=== PATIENT | male | born 1960 | race Caucasian/White ===

== ENCOUNTER 2018-05-08 02:25 | Inpatient (IN) | payer MEDICAID, OTHER ==
[~2018-05-08] VITALS: Ht 160 cm; Wt 65.4 kg
[2018-05-08] MEDS ORDERED: INSULIN REGULAR, HUMAN 100 UNIT/1 ML 3ML VIAL IVP STA (04:42)
[2018-05-08] MEDS ORDERED: NA POLYST SULFON 15 GM/60 ML BTL PO STA (04:42)
--- NOTE | 2018-05-08 04:54 | ERD ---
ER Documentation Chief Complaint Chief Complaint cp x 2 days was seen at [facility] x 2 days ago for same HPI 57-year-old male with a history of cirrhosis presenting with chest pain for the past 2 days with associated weakness. He describes an aching, pressure in his chest, nonradiating, intermittent. Not associated with exertion. He states that he has a history of cirrhosis and usually goes weekly to [facility] for paracenteses. He endorses decrease in urination. No shortness of breath, vomiting, diarrhea, abdominal pain, fever or chills ROS All systems reviewed and are negative except as per history of present illness. Medications Home Meds No Active Prescriptions or Reported Meds Allergies Allergies: Coded Allergies: No Known Allergy (Unverified , 05/12/12) PMhx/Soc History of Surgery: No Anesthesia Reaction: No Hx Neurological Disorder: No Hx Respiratory Disorders: No Hx Cardiac Disorders: Yes Hx Psychiatric Problems: No Hx Miscellaneous Medical Probl: Yes (HIV (+), cirrhosis) Hx Alcohol Use: Yes (former alcohol use) Hx Substance Use: No Hx Tobacco Use: No Smoking Status: Never smoker FmHx Family History: No diabetes Physical Exam Vitals Vital Signs Date Temp Pulse Resp B/P (MAP) Pulse Ox O2 O2 Flow FiO2 Time Delivery Rate 05/08/18 83 18 113/81 100 05:45 (92) 05/08/18 89 18 116/80 100 03:15 (92) 05/08/18 99.2 104 24 101/66 100 02:35 (78) Physical Exam Const: No acute distress Head: Atraumatic Eyes: Normal Conjunctiva ENT: Normal External Ears, Nose and Mouth. Neck: Full range of motion. No meningismus. Resp: Clear to auscultation bilaterally Cardio: Regular rate and rhythm, no murmurs Abd: Soft, distended with ascites. Nontender to palpation. Normal bowel sounds Skin: No petechiae or rashes Back: No midline or flank tenderness Ext: No cyanosis, or edema Neur: Awake and alert Psych: Normal Mood and Affect Result Diagram: 05/08/18 0320 05/08/18 0320 Results 24 hrs Laboratory Tests Test 05/08/18 03:20 05/08/18 05:16 White Blood Count 6.1 10^3/ul Red Blood Count 4.47 10^6/ul Hemoglobin 11.2 g/dl Hematocrit 34.2 % Mean Corpuscular Volume 76.5 fl Mean Corpuscular Hemoglobin 25.1 pg Mean Corpuscular Hemoglobin Concent 32.7 g/dl Red Cell Distribution Width 19.7 % Platelet Count 168 10^3/UL Mean Platelet Volume 10.2 fl Immature Granulocytes % 0.500 % Neutrophils % % Segmented Neutrophils % (Manual) 56 % Lymphocytes % % Lymphocytes % (Manual) 20 % Monocytes % % Monocytes % (Manual) 17 % Eosinophils % % Eosinophils % (Manual) 1 % Basophils % % Metamyelocytes % (manual) 3 % Promyelocytes % (Manual) 3 % Nucleated Red Blood Cells % 0.0 /100WBC Immature Granulocytes # 0.030 10^3/ul Neutrophils # 10^3/ul Lymphocytes (Manual) 1.2 10^3/ul Lymphocytes # 10^3/ul Monocytes # 10^3/ul Monocytes # (Manual) 1.0 10^3/ul Eosinophils # 10^3/ul Basophils # 10^3/ul Metamyelocytes # 0.1 10^3/ul Promyelocytes # 0.1 10^3/ul Nucleated Red Blood Cells # 10^3/ul Platelet Estimate NORMAL Polychromasia 1+ Hypochromasia 2+ Poikilocytosis 1+ Anisocytosis 1+ Macrocytosis 1+ Ovalocytes 1+ Sodium Level 130 mmol/L Potassium Level 6.1 mmol/L Chloride Level 97 mmol/L Carbon Dioxide Level 22 mmol/L Anion Gap 11 Blood Urea Nitrogen 30 mg/dl Creatinine 1.51 mg/dl Est Glomerular Filtrat Rate mL/min 48 mL/min Glucose Level 102 mg/dl Calcium Level 8.7 mg/dl Troponin I < 0.012 ng/ml Bedside Glucose 84 mg/dL Current Medications Medications Dose Sig/Keya Start Time Status Last (Trade) Ordered Route PRN Stop Time Admin Dose Reason Admin Sodium 30 gm ONCE STAT 05/08/18 DC 05/08/18 Polystyrene PO 04:42 05:29 Sulfonate 05/08/18 04:45 (Kayexalate) Insulin 10 unit ONCE STAT 05/08/18 DC 05/08/18 Human IVP 04:42 05:19 Regular 05/08/18 04:45 (Humulin R) Dextrose 100 ml ONCE ONCE 05/08/18 DC 05/08/18 (D50w IV 05:00 05:19 Syringe) 05/08/18 05:01 Dextrose ONCE PRN 05/08/18 (D50w IV DECREASED 05:00 Syringe) GLUCOSE Ondansetron 4 mg ER BRIDGE 05/08/18 HCl (Zofran PRN IV 05:30 Inj) NAUSEA/VOMITI 05/09/18 05:29 NG 650 mg ER BRIDGE 05/08/18 Acetaminophen PRN PO 05:30 (Tylenol .MILD PAIN 05/09/18 05:29 Tab) 1-3 OR TEMP Sodium 1,000 ml @ Q24H IV 05/08/18 05/08/18 Chloride 40 mls/hr 05:05 05:25 05/09/18 06:04 IV Flush 3 ml PER 05/08/18 (NS 3 ml) PROTOCOL IV 05:30 Ondansetron 4 mg Q6H PRN 05/08/18 HCl (Zofran IV 05:30 Inj) NAUSEA/VOMITI NG Morphine 2 mg Q4H PRN 05/08/18 Sulfate IV .PAIN 05:30 (morphine) 7-10 Procedures/MDM EMERGENT LABS AND DIAGNOSTIC STUDIES: Lab Results above were reviewed and interpreted by me. CBC: no anemia or evidence of infection BMP: Hyperkalemia. Renal failure. No e/o severe acidosis, alkalosis, diabetic ketoacidosis Troponin within normal limits, not indicative of cardiac ischemia UA: Pending 12-lead EKG was interpreted by Anna Harding MD: Normal Sinus Rhythm with ventricular rate of 90 beats per minute Normal axis Normal intervals Inferior Q waves, abnormal R wave progression No acute ST or T wave changes suggestive of acute ischemia or STEMI. Radiology Results as interpreted by Radiology below were reviewed by Precious Harding MD: Chest x-ray: 1. Interval increased bibasilar linear parenchymal opacities representing fibrosis or discoid atelectasis.. Initial Nursing notes reviewed. Previous Medical Records requested via the Electronic Health Record. EMERGENCY DEPARTMENT COURSE / MEDICAL DECISION MAKING: Patient is presenting with chest pain and generalized weakness. EKG did not show any acute abnormalities. Workup was notable for signs of renal insufficiency with hyperkalemia. No hyperkalemia changes seen on EKG. Patient was treated with insulin, dextrose, and Kayexalate. He will require admission for further workup of renal failure and hyperkalemia. At this time there is no evidence of ACS and I doubt pulmonary embolism. Critical Care Time: 32 minutes Treatments/Evaluations: Close monitoring and treatment of unstable vital signs, cardiorespiratory, and neurologic status, while maintaining tight balance of fluid, respiratory, and cardiac interventions. This time includes discussing the case with the patient and the patients family. This time does not include all procedures stated elsewhere in this record. This time also includes reviewing old records, labs and radiological studies. This time includes examining and re- examining the patient. Additionally, this time also includes arranging care with admitting and consulting physicians. Accepting Care Team: Current data and ongoing care discussed. Time: Time of admission Primary Provider: Dr. Jose Luis Avila Diagnosis: Primary Impression: Hyperkalemia Additional Impressions: Chest pain Chest pain type: unspecified Qualified Codes: R07.9 - Chest pain, unspecified Renal failure Renal failure chronicity: unspecified chronicity Qualified Codes: N19 - Unspecified kidney failure Condition: Serious LIZZY HARDING MD May 08, 2018 04:54
[2018-05-08] MEDS ORDERED: DEXTROSE 50% 50 ML SYRINGE IV ONE (05:00)
[2018-05-08] MEDS ORDERED: DEXTROSE 50% 50 ML SYRINGE IV PRN (05:00)
[2018-05-08] MEDS ORDERED: SOD CHLORIDE 0.9% 1,000 ML IV SCH (05:05)
[2018-05-08] MEDS ORDERED: NACL 0.9% 3 ML SYG IV SCH ×2 (05:30→10:30)
[2018-05-08] MEDS ORDERED: ONDANSETRON 4 MG INJ IV PRN ×3 (05:30→10:30)
[2018-05-08] MEDS ORDERED: ACETAMINOPHEN 325 MG TAB PO PRN ×2 (05:30→10:30)
[2018-05-08] MEDS ORDERED: morphine 2 MG INJ IV PRN ×2 (05:30→10:30)
[2018-05-08 06:14] VITALS: PULSE 91
[2018-05-08 06:36] VITALS: BP 109/76; PULSE 92; RESP 18
[2018-05-08 07:40] VITALS: BP 112/73; PULSE 78; RESP 18
[2018-05-08 08:39] VITALS: PULSE 94
[2018-05-08 08:40] VITALS: PULSE 94
[2018-05-08 10:02] VITALS: Ht 160 cm; Wt 65.4 kg
[2018-05-08] MEDS ORDERED: NITROGLYCERIN (SL) 0.4 MG TAB SL PRN (10:30)
[2018-05-08] MEDS ORDERED: DOCUSATE SODIUM 100 MG CAP PO PRN (10:30)
[2018-05-08] MEDS ORDERED: LORAZEPAM 2 MG INJ IV PRN (10:30)
[2018-05-08] MEDS ORDERED: HYDROCODONE/APAP (5/325) TAB PO PRN (10:30)
[2018-05-08] MEDS ORDERED: MAGNESIUM HYDROXIDE 30ML CUP PO PRN (10:30)
[2018-05-08] MEDS ORDERED: hydrALAzine 20 MG INJ IV PRN (10:30)
[2018-05-08] MEDS ORDERED: ALBUTEROL/IPRATROPIUM (NEB) 3 ML AMP HHN PRN (10:30)
--- NOTE | 2018-05-08 11:20 | HP ---
DATE OF ADMISSION: 05/08/2018 This is a 57-year-old male. CHIEF COMPLAINT: Chest pain and weakness. HISTORY OF PRESENT ILLNESS: A 57-year-old male with past medical history of HIV, cirrhosis who is co conrad in with chest discomfort. The patient says the symptoms have been going on for the last 2 days. He has also been feeling weak. Apparently, the patient was at [facility] about a week ago and had paracentesis. The patient is somewhat confused and gives limited HPI. Some of the information is ob tained from the ER documentation. He did deny nausea, vomiting. No diarrhea or constipation. No up per or lower GI bleeding. No fevers or chills. When he came in today, he was found with a high pota ssium of 6.1 and in the ER, he was given Kayexalate and insulin for that. He was also found with a c reatinine of 1.5. We do not know his baseline. He does have history of cirrhosis. Apparently he go es twice a month to [facility] to get paracentesis performed. Again, information is limited, however . PAST MEDICAL HISTORY: As stated above. ALLERGIES: NO LISTED DRUG ALLERGIES. MEDICATIONS AT HOME: Unknown. PAST SURGICAL HISTORY: Unknown. SOCIAL HISTORY: Former alcohol user, no smoking or drug abuse history. FAMILY HISTORY: Noncontributory. PHYSICAL EXAMINATION: VITAL SIGNS: T-max 99.2, pulse 83 to 104, respirations 19 to 24, blood pressure 116/80, satting 100% on room air. GENERAL: The patient is lying in bed, answering questions appropriately but somewhat confused. HEENT: Pupils equal, round, react to light. Extraocular muscles intact. NECK: Supple, no thyromegaly. LUNGS: Clear to auscultation bilaterally. CARDIOVASCULAR: S1, S2 heard. No rubs or gallops. ABDOMEN: Soft, but slightly distended with some mild ascites. Nontender. No rebound or guarding. MUSCULOSKELETAL: No lower extremity edema bilaterally. NEUROLOGIC: No focal deficits. LABORATORY DATA: CBC is normal. Sodium 130, potassium 6.1, chloride 97, CO2 22, BUN of 30, creatini ne 1.51, glucose of 102. The troponin is negative x2 thus far. IMAGING: There was a chest x-ray performed today that shows interval increased bibasilar linear pare nchymal opacities representing fibrosis or discoid atelectasis. ASSESSMENT AND PLAN: A 57-year-old male coming in with chest pressure and discomfort and weakness wi th signs of hyperkalemia and possible RIVER with a prior history of cirrhosis and HIV. 1. Chest discomfort. We will admit the patient to telemetry for rule out for acute coronary syndrom e. Troponins have been negative x2. Followup third troponin. Put him on morphine, oxygen, nitrogly cerin and aspirin. 2. Hyperkalemia, unclear etiology. In any event, we will follow up the BMP since he already did get Kayexalate and insulin. Follow up a BMP later this afternoon. 3. History of cirrhosis. Apparently he has had this for a couple of years. He apparently gets para centesis performed at outside hospital. He does have some distention today, so will order for anothe r paracentesis and monitor LFTs. There were no liver function tests ordered today. Will also get an ammonia level, since he is somewhat confused, rule out hepatic encephalopathy. 4. Elevated creatinine levels. Could be secondary to RIVER versus mild hepatorenal syndrome; no lower extremity swelling however. Do cautious use of IV fluids for now. Monitor BUN and creatinine level s in the morning. Monitor urine output. Again, follow up the LFTs. 5. History of human immunodeficiency virus. The patient does not state if he is taking treatment or not. We will follow up CD4 count and HIV viral load test. 6. Deep venous thrombosis prophylaxis. He is on SCDs. Dictated By: CORI CASTILLO Conf#: [id number] DID#: [id number]
[2018-05-08 11:53] VITALS: BP 110/71; PULSE 75; RESP 18
--- NOTE | 2018-05-08 12:01 | DS ---
Date/Time of Note Date/Time of Note DATE: 05/08/18 TIME: 12:01 Discharge Summary Admission/Discharge Info Admit Date/Time May 08, 2018 at 05:04 Discharge Date/Time May 08, 2018 at 11:31 Discharge Diagnosis Patient left AMA Patient Condition: Serious Hospital Course 57-year-old male with past medical history of HIV, cirrhosis who is coming in with chest discomfort. The patient says the symptoms have been going on for the last 2 days. He has also been feeling weak. Apparently, [place] [facility] [place] [facility]. The patient is somewhat confused and gives limited HPI. Some of the information is obtained from the ER documentation. He did deny nausea, vomiting. No diarrhea or constipation. No upper or lower GI bleeding. No fevers or chills. When he came in today, he was found with a high potassium of 6.1 and in the ER, he was given Kayexalate and insulin for that. He was also found with a creatinine of 1.5. We do not know his baseline. He does have history of cirrhosis. Apparently he [place] [facility] [place]. Again, information is limited, however. Home Meds No Active Prescriptions or Reported Meds Primary Care Provider Care Physician No Primary Time spent on discharge: < 30 minutes Pending Labs Laboratory Tests Test 05/08/18 03:20 05/08/18 05:16 05/08/18 05:30 05/08/18 05:32 White Blood 6.1 Count 10^3/ul (4.8-10 .8) Red Blood 4.47 Count 10^6/ul (4.70-6 .10) Hemoglobin 11.2 g/dl (14.0-18.0 ) Hematocrit 34.2 % (42.0-52.0) Mean 76.5 Corpuscular fl (82.0-101.0) Volume Mean 25.1 Corpuscular pg (29.0-33.0) Hemoglobin Mean 32.7 Corpuscular g/dl (32.0-37.0 Hemoglobin Conc ) ent Red Cell 19.7 Distribution % (11.5-14.5) Width Platelet Count 168 10^3/UL (140-41 5) Mean Platelet 10.2 Volume fl (7.4-10.4) Immature 0.500 Granulocytes % % (0.001-0.429) Neutrophils % % (39.0-77.0) Segmented 56 % (39-77) Neutrophils % (Manual) Lymphocytes % % (15.0-51.0) Lymphocytes % 20 % (15-51) (Manual) Monocytes % % (0.0-11.0) Monocytes % 17 % (0-11) (Manual) Eosinophils % % (0.0-7.0) Eosinophils % 1 % (0-7) (Manual) Basophils % % (0.0-2.0) Metamyelocytes 3 % (0-0) % (manual) Promyelocytes % 3 % (0-0) (Manual) Nucleated Red 0.0 Blood Cells % /100WBC (0.0-0. 0) Immature 0.030 Granulocytes # 10^3/ul (0.0-0. 031) Neutrophils # 10^3/ul (1.6-7. 5) Lymphocytes 1.2 (Manual) 10^3/ul (0.8-2. 9) Lymphocytes # 10^3/ul (0.8-2. 9) Monocytes # 10^3/ul (0.3-0. 9) Monocytes # 1.0 (Manual) 10^3/ul (0.3-0. 9) Eosinophils # 10^3/ul (0.0-0. 5) Basophils # 10^3/ul (0.0-0. 1) Metamyelocytes 0.1 # 10^3/ul (0.0-0. 0) Promyelocytes 0.1 # 10^3/ul (0-0) Nucleated Red 10^3/ul (0.0-0. Blood Cells # 0) Platelet NORMAL Estimate Polychromasia 1+ (0-0) Hypochromasia 2+ (0-0) Poikilocytosis 1+ (0-0) Anisocytosis 1+ (0-0) Macrocytosis 1+ (0-0) Ovalocytes 1+ (0-0) Sodium Level 130 mmol/L (135-144 ) Potassium 6.1 Level mmol/L (3.5-5.1 ) Chloride Level 97 mmol/L (97-110) Carbon Dioxide 22 Level mmol/L (21-31) Anion Gap 11 (5-13) Blood Urea 30 mg/dl (7-20) Nitrogen Creatinine 1.51 mg/dl (0.61-1.2 4) Est Glomerular 48 mL/min (>60) Filtrat Rate mL/min Glucose Level 102 mg/dl (70-220) Calcium Level 8.7 mg/dl (8.4-10.2 ) Troponin I < 0.012 < 0.012 ng/ml (0.000-0. ng/ml (0.000-0 120) .120) Bedside 84 Glucose mg/dL (70-220) Total 0.2 Bilirubin mg/dl (0.2-1.3 ) Direct 0.00 Bilirubin mg/dl (0.00-0. 20) Indirect 0.2 Bilirubin mg/dl (0-1.1) Aspartate Amino 43 Transf (AST/SGO IU/L (15-46) T) Alanine 31 Aminotransferas IU/L (13-69) e (ALT/SGPT) Alkaline 217 Phosphatase IU/L (42-121) Total Protein 4.9 g/dl (6.1-8.1) Albumin 2.1 g/dl (3.3-4.9) CORI DALEY May 08, 2018 12:01
[2018-05-09] MEDS ORDERED: PANTOPRAZOLE (EC) 40 MG TAB PO SCH (06:00)
== END 2018-05-08 11:31 | disposition left against medical advice (07) | DRG 313 ==
LOC: E/R 02:25 → 6WM 05:04
PROVIDERS: ADMIT Hospitalist; ATTEND Hospitalist
DX: R07.9 Chest pain, unspecified (principal); R53.1 Weakness
CPT/HCPCS: 36415; 71045; 80048; 80076; 82140; 82550; 82553; 82962; 84439; 84484; 85025; 86360; 86703; 87536; 93005; 93306; J1815; J7030

== ENCOUNTER → 2018-05-16 | Emergency (ER) | payer MEDICAID ==
[~2018-05-16] VITALS: Ht 167.6 cm; Wt 66.7 kg
[~2018-05-16] MED LIST: LIDOCAINE 1% (MPF) 5 ML VIAL ONE
[2018-05-16 09:13] VITALS: Ht 167.6 cm; Wt 66.7 kg
[2018-05-16 11:58] VITALS: BP 119/91; PULSE 65; RESP 17
--- NOTE | 2018-05-16 12:43 | ERD ---
ER Documentation Chief Complaint Chief Complaint Patient here for paracentesis Hx of Ascites HPI Patient is a 57-year-old male with cirrhosis and ascites who presents with abdominal distention. He says that his last paracentesis was about 15 days ago. He denies fevers. He is well-known to myself and to our staff and has multiple visits to our emergency department for paracentesis. He checks and under this name as well as the name Eber. ROS All systems reviewed and are negative except as per history of present illness. Medications Home Meds No Active Prescriptions or Reported Meds Allergies Allergies: Coded Allergies: No Known Allergy (Unverified , 05/16/18) PMhx/Soc History of Surgery: No Anesthesia Reaction: No Hx Neurological Disorder: No Hx Respiratory Disorders: No Hx Cardiac Disorders: No Hx Psychiatric Problems: No Hx Miscellaneous Medical Probl: Yes (HIV +, CIRRHOSIS) Hx Alcohol Use: Yes (FORMER ALCOHOL USE) Hx Substance Use: No Hx Tobacco Use: No Smoking Status: Never smoker FmHx Family History: No diabetes Physical Exam Vitals Vital Signs Date Temp Pulse Resp B/P (MAP) Pulse Ox O2 O2 Flow FiO2 Time Delivery Rate 05/16/18 65 17 119/91 100 Room Air 11:58 (100) 05/16/18 97.0 110 20 132/80 100 09:13 (97) Physical Exam Const: No acute distress Head: Atraumatic Eyes: Normal Conjunctiva ENT: Normal External Ears, Nose and Mouth. Neck: Full range of motion. No meningismus. Resp: Clear to auscultation bilaterally Cardio: Regular rate and rhythm, no murmurs Abd: Abdominal distention with positive fluid wave Skin: No petechiae or rashes Back: No midline or flank tenderness Ext: No cyanosis, or edema Neur: Awake and alert Psych: Normal Mood and Affect Results 24 hrs Current Medications Medications Dose Sig/Keya Start Time Status Last (Trade) Ordered Route PRN Stop Time Admin Dose Reason Admin Lidocaine 5 ml STK-MED 05/16/18 DC 05/16/18 (Xylocaine ONCE .ROUTE 11:17 11:40 1% (Mpf)) 05/16/18 11:18 Procedures/MDM Ultrasound-guided paracentesis performed by radiology. Patient is a 57-year-old male who presents for paracentesis. I doubt spontaneous bacterial peritonitis. The patient had an ultrasound-guided paracentesis performed by radiology. The patient will be discharged and should follow-up with a primary doctor within 1 week. The patient can return for any worsening symptoms. I do not believe requires further workup or admission to the hospital at this time. Departure Diagnosis: Primary Impression: Ascites Ascites type: other type Qualified Codes: R18.8 - Other ascites Condition: Fair Patient Instructions: Ascites Referrals[facility] Usted se pizarro hecho un examen mdico de control que le indica que no est en sunita condicin que requiera tratamiento urgente en el Departamento de Emergencia. Un estudio ms profundo y el tratamiento de galloway condicin pueden esperar sin ningn riesgo hasta que usted sea atendida/o en el consultorio de galloway mdico o sunita clnica. Es responsabilidad suya arreglar sunita safia para el seguimiento del gabi. MANEJO DE CONDICIONES NO URGENTES EN EL FUTURO 1) Si usted tiene un mdico de atencin primaria: Usted debera llamar a galloway mdico de atencin primaria antes de venir al departamento de emergencia. Despus de las horas de consultorio, galloway doctor o galloway asociado/a est disponible por telfono. El mdico o enfermero de bere en el servicio telefnico puede asesorarle por nadeem medio para atender el problema, o gabi contrario se puede programar sunita safia. 2) Si usted no tiene un mdico de atencin primaria: Llame al mdico o clnica de referencia que aparece abajo ry las horas de consultorio para hacer sunita safia para que le vean. CLINICAS: [facility] [phone] [facility] [phone] [facility] [phone] [facility] [phone] [facility] [phone] [facility] [phone] [address] Additional Instructions: Llame al doctor nombrado rocky (Referral Sources) MAANA y landon sunita SAFIA PARA DENTRO DE SUNITA SEMANA. Dgale a la secretaria que nosotros le instruimos hacer esta safia.Avise o llame si galloway condicin se empeora antes de la safia. ONEAL REYES MD May 16, 2018 12:43
== END | disposition home or self-care (01) ==
LOC: E/R 09:10
DX: R18.8 Other ascites (principal); Z21 Asymptomatic human immunodeficiency virus [HIV] infection status
CPT/HCPCS: Z7502; Z7610

== ENCOUNTER 2018-05-19 12:12 | Emergency (ER) | payer MEDICAID ==
[~2018-05-19] VITALS: Ht 167.6 cm; Wt 69.1 kg
[2018-05-19 12:21] VITALS: Ht 167.6 cm; Wt 69.1 kg
[2018-05-19] MEDS ORDERED: LIDOCAINE 1% (MPF) 5 ML VIAL ONE (16:35)
--- NOTE | 2018-05-19 16:42 | ERD ---
ER Documentation Chief Complaint Chief Complaint Complains of abdominal pain hx of ascites HPI 57-year-old male with a history of alcoholic cirrhosis and ascites presenting with complaints of abdominal distention and would like fluid taken out of his abdomen. He states that he has the usual abdominal pressure with no other complaints of fever, chills, nausea, or vomiting. He was here on May 16, 2018 for the same reason and had a paracentesis done then. ROS All systems reviewed and are negative except as per history of present illness. Medications Home Meds No Active Prescriptions or Reported Meds Allergies Allergies: Coded Allergies: No Known Allergy (Unverified , 05/16/18) PMhx/Soc History of Surgery: No Anesthesia Reaction: No Hx Neurological Disorder: No Hx Respiratory Disorders: No Hx Cardiac Disorders: No Hx Psychiatric Problems: No Hx Miscellaneous Medical Probl: Yes (HIV +, CIRRHOSIS) Hx Alcohol Use: Yes (FORMER ALCOHOL USE) Hx Substance Use: No Hx Tobacco Use: No FmHx Family History: No diabetes Physical Exam Vitals Vital Signs Date Temp Pulse Resp B/P (MAP) Pulse Ox O2 O2 Flow FiO2 Time Delivery Rate 05/19/18 97.0 113 20 119/68 99 12:21 (85) Physical Exam Const: No acute distress, nontoxic Head: Atraumatic Eyes: Normal Conjunctiva ENT: Normal External Ears, Nose and Mouth. Neck: Full range of motion. No meningismus. Resp: Clear to auscultation bilaterally Cardio: Regular rate and rhythm, no murmurs Abd: Abdomen distended with ascites, nontender to palpation. Normal bowel sounds Skin: No petechiae or rashes Back: No midline or flank tenderness Ext: No cyanosis, or edema Neur: Awake and alert Psych: Normal Mood and Affect Result Diagram: 05/19/18 1459 05/19/18 1459 Results 24 hrs Laboratory Tests Test 05/19/18 14:59 White Blood Count 5.8 10^3/ul Red Blood Count 4.44 10^6/ul Hemoglobin 10.8 g/dl Hematocrit 34.2 % Mean Corpuscular Volume 77.0 fl Mean Corpuscular Hemoglobin 24.3 pg Mean Corpuscular Hemoglobin Concent 31.6 g/dl Red Cell Distribution Width 19.8 % Platelet Count 208 10^3/UL Mean Platelet Volume 9.5 fl Immature Granulocytes % 0.500 % Neutrophils % 62.3 % Lymphocytes % 21.0 % Monocytes % 14.3 % Eosinophils % 1.4 % Basophils % 0.5 % Nucleated Red Blood Cells % 0.0 /100WBC Immature Granulocytes # 0.030 10^3/ul Neutrophils # 3.6 10^3/ul Lymphocytes # 1.2 10^3/ul Monocytes # 0.8 10^3/ul Eosinophils # 0.1 10^3/ul Basophils # 0.0 10^3/ul Nucleated Red Blood Cells # 0.0 10^3/ul Prothrombin Time 13.5 Sec Prothrombin Time Ratio 1.1 INR International Normalized Ratio 1.02 Activated Partial Thromboplast Time 28.9 Sec Sodium Level 131 mmol/L Potassium Level 5.5 mmol/L Chloride Level 103 mmol/L Carbon Dioxide Level 22 mmol/L Anion Gap 6 Blood Urea Nitrogen 32 mg/dl Creatinine 1.38 mg/dl Est Glomerular Filtrat Rate mL/min 53 mL/min Glucose Level 154 mg/dl Calcium Level 8.3 mg/dl Total Bilirubin 0.2 mg/dl Direct Bilirubin 0.00 mg/dl Indirect Bilirubin 0.2 mg/dl Aspartate Amino Transf (AST/SGOT) 54 IU/L Alanine Aminotransferase (ALT/SGPT) 27 IU/L Alkaline Phosphatase 392 IU/L Total Protein 6.3 g/dl Albumin 2.7 g/dl Globulin 3.60 g/dl Albumin/Globulin Ratio 0.75 Lipase 223 U/L Current Medications Medications Dose Sig/Keya Start Time Status Last (Trade) Ordered Route PRN Stop Time Admin Dose Reason Admin Lidocaine 5 ml STK-MED 05/19/18 DC 05/19/18 (Xylocaine ONCE .ROUTE 16:35 16:58 1% (Mpf)) 05/19/18 16:36 Procedures/MDM EMERGENT LABS AND DIAGNOSTIC STUDIES: Lab Results above were reviewed and interpreted by me. CBC: Mild anemia, no evidence of infection CMP: Mild hyponatremia, likely secondary to fluid overload. Elevated BUN and creatinine, chronic. Mild hyperkalemia. Coags show no evidence of significant coagulopathy Initial Nursing notes reviewed. Previous Medical Records requested via the Electronic Health Record. EMERGENCY DEPARTMENT COURSE / MEDICAL DECISION MAKING: Patient is presenting with abdominal distention. Low suspicion for SBP or acute surgical abdomen. Labs were at his baseline. Ultrasound-guided paracentesis was done with improvement of his symptoms. Follow-up vitals were normal. Return precautions discussed. Patient discharged in stable condition. Departure Diagnosis: Primary Impression: Ascites Ascites type: due to alcoholic cirrhosis Qualified Codes: K70.31 - Alcoholic cirrhosis of liver with ascites Condition: Stable Patient Instructions: Paracentesis, Ascites Referrals: NO PRIMARY,CARE PHYSICIAN (PCP) LIZZY LESTER MD May 19, 2018 16:42
[2018-05-19 17:04] VITALS: BP 104/68; PULSE 100; RESP 20
== END 2018-05-19 17:55 | disposition home or self-care (01) ==
LOC: E/R 12:12
DX: K70.31 Alcoholic cirrhosis of liver with ascites (principal); Z21 Asymptomatic human immunodeficiency virus [HIV] infection status
CPT/HCPCS: 80053; 83690; 85025; 85610; 85730; Z7502; Z7610

== ENCOUNTER 2018-05-26 09:53 | Emergency (ER) | payer MEDICAID ==
[~2018-05-26] VITALS: Ht 167.6 cm; Wt 66.8 kg
[2018-05-26 09:55] VITALS: Ht 167.6 cm; Wt 66.8 kg
--- NOTE | 2018-05-26 11:13 | ERD ---
ER Documentation Chief Complaint Chief Complaint Complains of abdominal pain Hx of Ascites HPI 57-year-old male with a history of alcoholic cirrhosis and ascites presenting with complaints of abdominal distention and would like fluid taken out of his abdomen. He states that he has the usual abdominal pressure with no other complaints of fever, chills, nausea, or vomiting. He was here last week for the same reason and had a paracentesis done then. Patient denies blood per rectum or melena, no chest pain or shortness of breath, no vomiting or diarrhea. ROS All systems reviewed and are negative except as per history of present illness. Medications Home Meds No Active Prescriptions or Reported Meds Allergies Allergies: Coded Allergies: No Known Allergy (Unverified , 05/26/18) PMhx/Soc Obesity, alcoholic cirrhosis with recurrent ascites History of Surgery: No Anesthesia Reaction: No Hx Neurological Disorder: No Hx Respiratory Disorders: No Hx Cardiac Disorders: No Hx Psychiatric Problems: No Hx Miscellaneous Medical Probl: Yes (HIV +, CIRRHOSIS, ASCITES) Hx Alcohol Use: Yes (FORMER ALCOHOL USE) Hx Substance Use: No Hx Tobacco Use: No Smoking Status: Former smoker FmHx Family History: No diabetes Physical Exam Vitals Vital Signs Date Temp Pulse Resp B/P (MAP) Pulse Ox O2 O2 Flow FiO2 Time Delivery Rate 05/26/18 97.0 110 20 111/68 100 09:55 (82) Physical Exam Const: No acute distress, nontoxic Head: Atraumatic Eyes: Normal Conjunctiva ENT: Normal External Ears, Nose and Mouth. Neck: Full range of motion. No meningismus. Resp: Clear to auscultation bilaterally Cardio: Regular rate and rhythm, no murmurs Abd: Abdomen distended with ascites, nontender to palpation. Normal bowel sounds Skin: No petechiae or rashes Back: No midline or flank tenderness Ext: No cyanosis, or edema Neur: Awake and alert Psych: Normal Mood and Affect Procedures/MDM I ordered ultrasound-guided paracentesis to be performed in radiology department. 5 L of clear ascitic fluid was removed, and patient feels much better. Patient feels much better at this time, and vital signs are normal, symptoms have improved. I did give strict instructions to return to the ED if symptoms continue or worsen, patient will otherwise follow-up with primary care physician. Patient understood instructions and agreed to plan. Disclaimer: Inadvertent spelling and grammatical errors are likely due to EHR/dictation software use and do not reflect on the overall quality of patient care. Also, please note that the electronic time recorded on this note does not necessarily reflect the actual time of the patient encounter. Departure Diagnosis: Primary Impression: Cirrhosis Hepatic cirrhosis type: alcoholic cirrhosis Ascites presence: with ascites Qualified Codes: K70.31 - Alcoholic cirrhosis of liver with ascites Condition: Good Patient Instructions: Ascites ERIK MATOS MD May 26, 2018 11:13
[2018-05-26 12:35] VITALS: BP 105/64; PULSE 90; RESP 16
[2018-05-26 12:58] VITALS: BP 101/66; PULSE 90; RESP 16
[2018-05-26] MEDS ORDERED: LIDOCAINE 1% (MPF) 5 ML VIAL ONE (13:06)
[2018-05-26 13:47] VITALS: BP 104/87; PULSE 102; RESP 17
== END 2018-05-26 13:48 | disposition home or self-care (01) ==
LOC: E/R 09:53
DX: K70.31 Alcoholic cirrhosis of liver with ascites (principal); Z21 Asymptomatic human immunodeficiency virus [HIV] infection status; Z87.891 Personal history of nicotine dependence
CPT/HCPCS: Z7502; Z7610

== ENCOUNTER 2018-06-29 09:38 | Emergency (ER) | payer MEDICAID ==
[~2018-06-29] VITALS: Ht 167.6 cm; Wt 67.0 kg
[2018-06-29 09:52] VITALS: Ht 167.6 cm; Wt 67.0 kg
[2018-06-29] MEDS ORDERED: CEPH-443 PO (11:43)
[2018-06-29] MEDS ORDERED: SPIR25TA PO (11:43)
[2018-06-29] MEDS ORDERED: FURO20TA3 PO (11:43)
--- NOTE | 2018-06-29 11:47 | ERD ---
ER Documentation Chief Complaint Chief Complaint ABDOMINAL DISTENTION/PAIN - FOR PARACENTESIS HPI 57-year-old male presents the emergency department complaining of abdominal discomfort in the lower part of his abdomen. Patient has a history of cirrhosis requiring multiple paracentesis. Despite the triage note, patient is not here for his normal paracentesis. Patient states he has been having increasing discomfort in the lower part of his abdomen. He reports no fevers, chills, vomiting. Patient reports no diarrhea. He reports normal urinary symptoms. ROS All systems reviewed and are negative except as per history of present illness. Medications Home Meds Active Scripts Cephalexin* (Keflex*) 500 Mg Capsule, 500 MG PO QID for 5 Days, CAP Prov:SUMALIZKY 06/29/18 Reported Medications Spironolactone* (Aldactone*) 25 Mg Tablet, 25 MG PO BID, #60 TAB 06/29/18 Furosemide* (Furosemide*) 20 Mg Tablet, 20 MG PO DAILY, #60 TAB 06/29/18 Allergies Allergies: Coded Allergies: No Known Allergy (Unverified , 06/29/18) PMhx/Soc History of Surgery: No Anesthesia Reaction: No Hx Neurological Disorder: No Hx Respiratory Disorders: No Hx Cardiac Disorders: No Hx Psychiatric Problems: No Hx Miscellaneous Medical Probl: Yes (HIV +, CIRRHOSIS, ASCITES) Hx Alcohol Use: Yes (FORMER ALCOHOL USE) Hx Substance Use: No Hx Tobacco Use: No Smoking Status: Never smoker FmHx Noncontributory for chief complaint Physical Exam Vitals Vital Signs Date Temp Pulse Resp B/P (MAP) Pulse Ox O2 O2 Flow FiO2 Time Delivery Rate 06/29/18 98.9 108 24 112/74 99 09:52 (87) Physical Exam GENERAL: Chronically ill but in no acute distress HEENT: Pupils equal, round, and reactive to light. EOMI. There is no scleral icterus. NECK: C-spine is soft and supple, there is no meningismus. There is no cervical lymphadenopathy. LUNGS: Clear to auscultation bilaterally. There are no rales, wheezes or rhonchi. HEART: Regular rate and rhythm, no murmurs, clicks, rubs or gallops. ABDOMEN: Soft, mildly distended with evidence of cirrhosis and a reducible umbilical hernia. Patient has mild swelling and redness in the lower part of the abdomen with an abdominal wall cellulitis. There is no abscess noted. No crepitus is noted. There is no rebound, guarding or tenderness. EXTREMITIES: There is no peripheral cyanosis or edema. No focal swelling or erythema. NEURO: The patient moves all four extremities with 5/5 strength. Cranial nerves II - XII are intact. Normal gait. Alert and oriented. no Asterixis SKIN: There is no apparent rash or petechiae. HEME/LYMPHATIC: There is no evidence of excessive bruising or lymphedema. PSYCHIATRIC: The patient does not appear anxious or depressed. Result Diagram: 06/29/18 1045 06/29/18 1045 Results 24 hrs Laboratory Tests Test 06/29/18 10:45 White Blood Count 5.3 10^3/ul Red Blood Count 4.45 10^6/ul Hemoglobin 11.7 g/dl Hematocrit 36.5 % Mean Corpuscular Volume 82.0 fl Mean Corpuscular Hemoglobin 26.3 pg Mean Corpuscular Hemoglobin Concent 32.1 g/dl Red Cell Distribution Width 21.2 % Platelet Count 151 10^3/UL Mean Platelet Volume 11.2 fl Immature Granulocytes % 0.600 % Neutrophils % 61.4 % Lymphocytes % 24.0 % Monocytes % 12.5 % Eosinophils % 0.9 % Basophils % 0.6 % Nucleated Red Blood Cells % 0.0 /100WBC Immature Granulocytes # 0.030 10^3/ul Neutrophils # 3.3 10^3/ul Lymphocytes # 1.3 10^3/ul Monocytes # 0.7 10^3/ul Eosinophils # 0.1 10^3/ul Basophils # 0.0 10^3/ul Nucleated Red Blood Cells # 0.0 10^3/ul Prothrombin Time 14.1 Sec Prothrombin Time Ratio 1.1 INR International Normalized Ratio 1.08 Activated Partial Thromboplast Time 24.3 Sec Sodium Level 132 mmol/L Potassium Level 5.0 mmol/L Chloride Level 101 mmol/L Carbon Dioxide Level 26 mmol/L Anion Gap 5 Blood Urea Nitrogen 27 mg/dl Creatinine 1.68 mg/dl Est Glomerular Filtrat Rate mL/min 42 mL/min Glucose Level 115 mg/dl Calcium Level 8.1 mg/dl Total Bilirubin 0.5 mg/dl Direct Bilirubin 0.00 mg/dl Indirect Bilirubin 0.5 mg/dl Aspartate Amino Transf (AST/SGOT) 33 IU/L Alanine Aminotransferase (ALT/SGPT) 24 IU/L Alkaline Phosphatase 250 IU/L Total Protein 6.0 g/dl Albumin 2.5 g/dl Globulin 3.50 g/dl Albumin/Globulin Ratio 0.71 Procedures/MDM Patient was taken to a room, seen and evaluated. Comfort measures were initiated. Diagnostic tests were ordered and reviewed. 3 LEAD RHYTHM STRIP: Normal sinus rhythm without ectopy REEVALUATION: Diagnostic tests were appreciated and patient was reevaluated and was noted to be stable with no abdominal tenderness. MEDICAL DECISION MAKIN-year-old male presents to the emergency department with what appears to be a mild abdominal wall cellulitis. He does not appear to be septic or toxic and has a normal white count with an afebrile status. His abdomen is not significantly distended and he does not seem to need a paracentesis at this time. Overall, patient is clinically well and seems appropriate for outpatient care. Departure Diagnosis: Primary Impression: Abdominal wall cellulitis Condition: Stable Patient Instructions: Cellulitis Additional Instructions: Consulte a galloway mdico para el seguimiento segn lo discutido. Lleve sunita copia de los resultados de galloway prueba, si corresponde, a esta visita de seguimiento. Consulte a galloway mdico o regrese aqu si richard sntomas no mejoran micaela se esperaba. En cualquier momento, regrese al departamento de emergencias por cualquier cambio o empeoramiento en richard sntomas. [place] MOISE Jun 29, 2018 11:47
[2018-06-29 12:07] VITALS: BP 124/78; PULSE 74; RESP 18
== END 2018-06-29 12:09 | disposition home or self-care (01) ==
LOC: E/R 09:38
DX: L03.311 Cellulitis of abdominal wall (principal); Z21 Asymptomatic human immunodeficiency virus [HIV] infection status
CPT/HCPCS: 80053; 85025; 85610; 85730; Z7502; 99283

== ENCOUNTER 2018-06-30 07:55 | Emergency (ER) | payer MEDICAID ==
[~2018-06-30] VITALS: Ht 167.6 cm; Wt 68.0 kg
[~2018-06-30 07:55] MED LIST changes: +CEPH-443 PO; +FURO20TA3 PO; -LIDOCAINE 1% (MPF) 5 ML VIAL ONE; +SPIR25TA PO
[2018-06-30 07:58] VITALS: Ht 167.6 cm; Wt 68.0 kg
[2018-06-30] MEDS ORDERED: FENTAnyl 50 MCG/ML VIAL IV ONE (08:30)
[2018-06-30 09:25] VITALS: BP 107/78; PULSE 82; RESP 20
[2018-06-30] MEDS ORDERED: LIDOCAINE 1% (MPF) 5 ML VIAL ONE (09:53)
[2018-06-30 10:00] VITALS: BP 123/84; PULSE 85; RESP 18
--- NOTE | 2018-06-30 10:22 | ERD ---
ER Documentation Chief Complaint Chief Complaint Complains of abdominal pain Hx of Ascites HPI Is a 57-year-old male with a history of liver cirrhosis. The patient had a paracentesis roughly 1 week ago. The patient indicates he has had abdominal distention. He also complains of mild abdominal pain but he states the pain is similar nature to his previous episodes of when his ascites worsens. He denies any difficulty in breathing. He said no fevers or shaking or chills. He denies any hemoptysis hematemesis or melanotic stools. ROS All systems reviewed and are negative except as per history of present illness. Medications Home Meds Active Scripts Cephalexin* (Keflex*) 500 Mg Capsule, 500 MG PO QID for 5 Days, CAP Prov:KY MOISE 06/29/18 Reported Medications Spironolactone* (Aldactone*) 25 Mg Tablet, 25 MG PO BID, #60 TAB 06/29/18 Furosemide* (Furosemide*) 20 Mg Tablet, 20 MG PO DAILY, #60 TAB 06/29/18 Allergies Allergies: Coded Allergies: No Known Allergy (Unverified , 06/29/18) PMhx/Soc History of Surgery: No Anesthesia Reaction: No Hx Neurological Disorder: No Hx Respiratory Disorders: No Hx Cardiac Disorders: No Hx Psychiatric Problems: No Hx Miscellaneous Medical Probl: Yes (HIV +, CIRRHOSIS, ASCITES) Hx Alcohol Use: Yes (FORMER ALCOHOL USE) Hx Substance Use: No Hx Tobacco Use: No Smoking Status: Never smoker Physical Exam Vitals Vital Signs Date Temp Pulse Resp B/P (MAP) Pulse Ox O2 O2 Flow FiO2 Time Delivery Rate 06/30/18 85 18 123/84 98 Room Air 10:00 (97) 06/30/18 82 20 107/78 97 Room Air 09:25 (88) 06/30/18 97.5 98 20 120/56 100 07:58 (77) Physical Exam Constitutional:Well-developed. Well-nourished. HEENT:Normocephalic. Atraumatic.Pupils were equal round reactive to light. Moist mucous membranes.No tonsillar exudates. Neck: No nuchal rigidity. No lymphadenopathy. No posterior cervical spine tenderness or step-offs. Respiratory: Not using accessory muscles of respiration.Lungs were clear to auscultation bilaterally. No rhonchi. No rales. No wheezing. Cardiovascular: Regular rate regular rhythm.No murmurs. No rubs were appreciated.S1, S2 normal. Distal pulses are palpable 2+ bilaterally. GI: Abdomen was soft. Nontender. Distended with tense abdominal ascites. Positive fluid thrill.. No pulsatile abdominal masses or bruits. No rebound. No guarding. Bowel sounds were present and normal. Muscle skeletal: Full range of motion of both the upper and lower extremities bilaterally.Normal muscle tone.No assymetrical calf tenderness or swelling. Skin: No petechia, no purpura. No lesions on the palms or the soles of the feet. No maculopapular rash. NEURO: Patient was alert, awake, orientated x3.No facial droop. Gait observed and normal with no ataxia.Speech had regular rate and rhythm. No focal neurological deficits. Results 24 hrs Current Medications Medications Dose Sig/Keya Start Time Status Last (Trade) Ordered Route PRN Stop Time Admin Dose Reason Admin Fentanyl 25 mcg ONCE ONCE 06/30/18 DC (Sublimaze) IV 08:30 06/30/18 08:34 Lidocaine 5 ml STK-MED 06/30/18 DC 06/30/18 (Xylocaine ONCE .ROUTE 09:53 10:13 1% (Mpf)) 06/30/18 09:54 Procedures/MDM This is a 57-year-old male that presented to the emergency department for therapeutic paracentesis. There is no evidence of spontaneous bacterial peritonitis. Ultrasound-guided paracentesis performed by Dr. Zapata. 5 L have been removed. There is no complications. The patient was discharged home in fair condition. They were instructed to return to the emergency department at any time if there was any worsening of their condition. The patient stated they would follow up with their PCP in the next 24-48 hours to initiate a suitable medication regimen under the care of their PCP as well as to allow their PCP to monitor any drug reactions. The patient was discharged home with prescriptions after they gave informed consent to the new medication. They were also fully informed by myself on the adverse effects and adverse drug interactions in order to provide adequate safeguards to prevent possible adverse reactions to medications. Departure Diagnosis: Primary Impression: Ascites Ascites type: due to alcoholic cirrhosis Qualified Codes: K70.31 - Alcoholic cirrhosis of liver with ascites Condition: Fair Patient Instructions: Ascites ROSALIA BLEVINS MD Jun 30, 2018 10:22
[2018-06-30 10:23] VITALS: BP 127/84; PULSE 80; RESP 18
== END 2018-06-30 10:26 | disposition home or self-care (01) ==
LOC: E/R 07:55
DX: K70.31 Alcoholic cirrhosis of liver with ascites (principal)
CPT/HCPCS: Z7502; Z7610

== ENCOUNTER 2018-07-12 09:45 | Emergency (ER) | payer MEDICAID ==
[~2018-07-12] VITALS: Ht 170.2 cm; Wt 76.0 kg
[2018-07-12 09:53] VITALS: Ht 170.2 cm; Wt 76.0 kg
[2018-07-12 11:05] VITALS: BP 105/73; PULSE 76; RESP 16
--- NOTE | 2018-07-12 11:10 | ERD ---
ER Documentation Chief Complaint Chief Complaint pt bib self with c/o abd swelling needs paracentesis HPI This is a 58-year-old male with a past medical history of HIV, alcoholic cirrhosis with recurrent ascites requiring frequent paracenteses, who is now presenting for recurrent abdominal distention and desire for paracentesis. The patient endorses an abdominal fullness and swelling, but he does not endorse abdominal pain. He does not endorse any shortness of breath. He does not feel sick. He denies any fever or chills. The patient's last blood work was obtaine d was on June 29, 2018. His INR was less than 2. The patient had a paracentesis performed at our facility on June 30, 2018. The patient was previously diagnosed with abdominal wall cellulitis. The patient does not endorse any redness or induration or warmth or purulence to the skin over the abdomen today. The patient has had no headache or vision changes. The patient does not endorse neck or back pain. The patient denies lightheadedness or dizziness. The patient has had no chest pain or trouble breathing. The patient denies nausea or vomiting. The patient denies changes to bowel movements or urination. The patient has had no focal deficits. The patient has had no weakness or numbness or tingling to the face or extremities. ROS All systems reviewed and are negative except as per history of present illness. Medications Home Meds Reported Medications Spironolactone* (Aldactone*) 25 Mg Tablet, 25 MG PO BID, #60 TAB 06/29/18 Furosemide* (Furosemide*) 20 Mg Tablet, 20 MG PO DAILY, #60 TAB 06/29/18 Discontinued Scripts Cephalexin* (Keflex*) 500 Mg Capsule, 500 MG PO QID for 5 Days, CAP Prov:KY MOISE 06/29/18 Allergies Allergies: Coded Allergies: No Known Allergy (Unverified , 07/12/18) PMhx/Soc History of Surgery: No Anesthesia Reaction: No Hx Neurological Disorder: No Hx Respiratory Disorders: No Hx Cardiac Disorders: No Hx Psychiatric Problems: No Hx Miscellaneous Medical Probl: Yes (HIV +, CIRRHOSIS, ASCITES) Hx Alcohol Use: Yes (FORMER ALCOHOL USE) Hx Substance Use: No Hx Tobacco Use: No Smoking Status: Never smoker FmHx Family History: No diabetes Physical Exam Vitals Vital Signs Date Temp Pulse Resp B/P (MAP) Pulse Ox O2 O2 Flow FiO2 Time Delivery Rate 07/12/18 70 16 117/78 99 11:45 (91) 07/12/18 70 17 113/75 99 11:25 (88) 07/12/18 76 16 105/73 98 Room Air 11:05 (84) 07/12/18 97.4 89 18 107/76 98 09:53 (86) Physical Exam Const: No acute distress Head: Atraumatic Eyes: Normal Conjunctiva ENT: Normal External Ears, Nose and Mouth. Neck: Full range of motion. No meningismus. Resp: Clear to auscultation bilaterally Cardio: Regular rate and rhythm, no murmurs Abd: Distended with ascites. Small periumbilical hernia, reducible. Normal bowel sounds Skin: No petechiae or rashes Back: No midline or flank tenderness Ext: No cyanosis, or edema Neur: Awake and alert Psych: Normal Mood and Affect Results 24 hrs Current Medications Medications Dose Sig/Keya Start Time Status Last (Trade) Ordered Route PRN Stop Time Admin Dose Reason Admin Lidocaine 5 ml STK-MED 07/12/18 DC 07/12/18 (Xylocaine ONCE .ROUTE 11:17 11:40 1% (Mpf)) 07/12/18 11:18 Procedures/MDM MDM The patient's presentation warrants further investigation. Previous medical records, if available, were reviewed. LABS The patient's laboratory testing was reviewed from 06/29/2018. No emergent treatment was required unless described below. INR 1.1 TREATMENT/DISPOSITION The patient presents for desire for paracentesis. The patient had his coagulati on studies completed within the last month. The patient's INR is less than 2. I do not see any evidence of cellulitis or abscess or other soft tissue infection. The patient is afebrile with unremarkable vital signs. The patient does not have any significant abdominal tenderness. I do not suspect spontaneous bacterial peritonitis and I do not feel the patient requires evaluation of his ascitic fluid today. The patient is not septic. He is not altered. There is no evidence of hepatic encephalopathy. I do feel the patient requires paracentesis for abdominal decompression. This was completed by interventional radiology without complication. Less than 5 L were taken off. The patient was evaluated in the emergency department after the procedure with stable blood pressure. The patient does not require albumin therapy. DISCHARGE Upon reevaluation of the patient, symptoms have improved. No emergent diagnoses were identified. At this time, I feel that the patient stable for discharge. The patient was instructed to follow-up with a primary care physician in 1-3 days. The patient will be given strict precautions with which to return to the emergency department. Prescriptions: none The patient's blood pressure was elevated at greater than 120/80 while in the emergency department. The patient was otherwise stable with no evidence of hypertensive urgency or emergency. The patient does not require admission for blood pressure control. I have discussed with the patient the risks of hypertension. I have instructed the patient to return to the ER for any new or worsening symptoms including chest pain, shortness of breath, headache, blurred vision, confusion, nausea, vomiting or LOC. I have advised the patient to follow up with the primary care physician for outpatient monitoring and treatment for hypertension in 1-3 days. Disclaimer: Inadvertent spelling and grammatical errors are likely due to EHR/dictation software use and do not reflect on the overall quality of patient care. Note that the electronic time recorded on this note does not necessarily reflect the actual time of the patient encounter. Departure Diagnosis: Primary Impression: Cirrhosis of liver with ascites Hepatic cirrhosis type: alcoholic cirrhosis Qualified Codes: K70.31 - Alcoholic cirrhosis of liver with ascites Additional Impressions: Abdominal distention Status post abdominal paracentesis Condition: Stable Patient Instructions: Ascites, Cirrhosis of the Liver, Paracentesis Additional Instructions: Thank you for for coming to [facility] for your care today. Please ask your nurse or provider if you have questions about your care today and do not leave until all your questions have been answered. Please use any medications given as directed and follow-up with your doctor (or the doctor you were referred to) in the next 1-3 days. If you do not have a primary care doctor you may follow up at the [facility] or [facility] (listed below). You may also use motrin and tylenol as needed for fever and/or pain unless instructed otherwise by your provider or nurse. Indications for more urgent follow-up have been discussed, but you may return to the Emergency Department at ANY time for any worrisome or worsening symptoms. If you have abdominal pain, please know that no test or exam you received is perfect and you should follow up within 8 hours for continued pain. If you had any imaging studies today, such as an X-Ray or CT Scan, these studies will be reviewed later by a radiologist. You will be called if there are important findings that were not identified today, so make sure the contact information you provided at registration is correct. If you received any narcotic pain control medicine today, such as Vicodin, Morphine or Dilaudid, your coordination and judgment may be affected for a number of hours. Please do not drive or operate heavy machinery, and you may want someone to assist you at home. If you were given a prescription for narcotic medication, be aware that it is very addictive- use sparingly and only if necessary. PLEASE SEEK FURTHER EVALUATION AND MANAGEMENT AT YOUR DOCTORS OFFICE WITHIN THE NEXT 1-3 DAYS. IT IS YOUR RESPONSIBILITY TO MAKE AN APPOINTMENT FOR FOLOW-UP CARE. IF YOU HAVE A PRIMARY DOCTOR, PLEASE CALL THEIR OFFICE TO SCHEDULE AN APPOINTMENT FOR FOLLOW UP. IF YOU DO NOT HAVE A PRIMARY DOCTOR YOU CAN CALL OUR PHYSICIAN REFERRAL HOTLINE AT IF YOU CAN NOT AFFORD TO SEE A PHYSICIAN YOU CAN CHOSE FROM THE FOLLOWING THE [facility] CL[facility]ICS: [facility] [address] [facility] [address] [facility] [address] [facility] [facility] [address] [facility] [facility] [address] [facility] [facility]. [address] NIRANJAN ROMERO MD Jul 12, 2018 11:09
[2018-07-12] MEDS ORDERED: LIDOCAINE 1% (MPF) 5 ML VIAL ONE (11:17)
[2018-07-12 11:25] VITALS: BP 113/75; PULSE 70; RESP 17
[2018-07-12 11:45] VITALS: BP 117/78; PULSE 70; RESP 16
[2018-07-12 12:12] VITALS: BP 104/71; PULSE 82; RESP 18
== END 2018-07-12 12:12 | disposition home or self-care (01) ==
LOC: E/R 09:45
DX: K70.31 Alcoholic cirrhosis of liver with ascites (principal); Z48.817 Encounter for surgical aftercare following surgery on the skin and subcutaneous tissue
CPT/HCPCS: Z7502; Z7610

== ENCOUNTER 2018-07-13 08:47 | Emergency (ER) | payer MEDICAID ==
[~2018-07-13] VITALS: Wt 62.1 kg
[~2018-07-13 08:47] MED LIST changes: -CEPH-443 PO
--- NOTE | 2018-07-13 12:19 | ERD ---
ER Documentation Chief Complaint Chief Complaint HAd paracenthesis yesterday, today dizziness when bend over HPI 58-year-old male presents the emergency department complaining of dizziness. Patient was evaluated yesterday for a paracentesis. He has recurrent paracentesis in our emergency department. Yesterday he had a relatively routine paracentesis without a large volume removal. He went home feeling well. He states that when he bent over he felt dizzy. He reported no headache, focal weakness or numbness. He reported no chest pain, shortness of breath or palpitations. He had no other complaints other than the nonspecific dizziness. ROS All systems reviewed and are negative except as per history of present illness. Medications Home Meds Reported Medications Spironolactone* (Aldactone*) 25 Mg Tablet, 25 MG PO BID, #60 TAB 06/29/18 Furosemide* (Furosemide*) 20 Mg Tablet, 20 MG PO DAILY, #60 TAB 06/29/18 Discontinued Scripts Cephalexin* (Keflex*) 500 Mg Capsule, 500 MG PO QID for 5 Days, CAP Prov:KY MOISE 06/29/18 Allergies Allergies: Coded Allergies: No Known Allergy (Unverified , 07/13/18) PMhx/Soc History of Surgery: No Anesthesia Reaction: No Hx Neurological Disorder: No Hx Respiratory Disorders: No Hx Cardiac Disorders: No Hx Psychiatric Problems: No Hx Miscellaneous Medical Probl: Yes (HIV +, CIRRHOSIS, ASCITES) Hx Alcohol Use: Yes (FORMER ALCOHOL USE) Hx Substance Use: No Hx Tobacco Use: No Smoking Status: Never smoker Physical Exam Vitals Vital Signs Date Temp Pulse Resp B/P (MAP) Pulse Ox O2 O2 Flow FiO2 Time Delivery Rate 07/13/18 98.0 71 12 119/76 100 Room Air 12:11 (90) 07/13/18 98.3 78 16 108/79 100 Room Air 10:00 (89) 07/13/18 98.1 91 18 118/76 99 08:52 (90) Physical Exam GENERAL: Chronically ill but in no acute distress HEENT: Pupils equal, round, and reactive to light. EOMI. There is no scleral icterus. Mucous membranes are moist and patient appears well-hydrated NECK: C-spine is soft and supple, there is no meningismus. There is no cervical lymphadenopathy. LUNGS: Clear to auscultation bilaterally. There are no rales, wheezes or rhonchi. HEART: Regular rate and rhythm, no murmurs, clicks, rubs or gallops. ABDOMEN: Soft, nondistended. There is no tenderness. There is a right lower quadrant paracentesis puncture site without evidence of leakage or bleeding. EXTREMITIES: There is no peripheral cyanosis or edema. No focal swelling or erythema. NEURO: The patient moves all four extremities with 5/5 strength. Cranial nerves II - XII are intact. Normal gait. Alert and oriented SKIN: There is no apparent rash or petechiae. HEME/LYMPHATIC: There is no evidence of excessive bruising or lymphedema. PSYCHIATRIC: The patient does not appear anxious or depressed. Result Diagram: 07/13/18 1007 07/13/18 1007 Results 24 hrs Laboratory Tests Test 07/13/18 10:07 White Blood Count 4.3 10^3/ul Red Blood Count 4.99 10^6/ul Hemoglobin 13.0 g/dl Hematocrit 41.1 % Mean Corpuscular Volume 82.4 fl Mean Corpuscular Hemoglobin 26.1 pg Mean Corpuscular Hemoglobin Concent 31.6 g/dl Red Cell Distribution Width 20.4 % Platelet Count 216 10^3/UL Mean Platelet Volume 10.3 fl Immature Granulocytes % 0.500 % Neutrophils % 62.8 % Lymphocytes % 22.8 % Monocytes % 12.7 % Eosinophils % 0.7 % Basophils % 0.5 % Nucleated Red Blood Cells % 0.0 /100WBC Immature Granulocytes # 0.020 10^3/ul Neutrophils # 2.7 10^3/ul Lymphocytes # 1.0 10^3/ul Monocytes # 0.5 10^3/ul Eosinophils # 0.0 10^3/ul Basophils # 0.0 10^3/ul Nucleated Red Blood Cells # 0.0 10^3/ul Prothrombin Time 13.7 Sec Prothrombin Time Ratio 1.1 INR International Normalized Ratio 1.04 Activated Partial Thromboplast Time 29.1 Sec Sodium Level 137 mmol/L Potassium Level 4.0 mmol/L Chloride Level 102 mmol/L Carbon Dioxide Level 27 mmol/L Anion Gap 8 Blood Urea Nitrogen 26 mg/dl Creatinine 1.52 mg/dl Est Glomerular Filtrat Rate mL/min 47 mL/min Glucose Level 87 mg/dl Calcium Level 8.6 mg/dl Troponin I < 0.012 ng/ml Procedures/MDM Patient was taken to a room, seen and evaluated. Comfort measures were initiated. Diagnostic tests were ordered and reviewed. 3 LEAD RHYTHM STRIP: Normal sinus rhythm without ectopy EK lead EKG reviewed by myself: Normal Sinus Rhythm Normal Wainwright and intervals No ST elevation, depression, or T wave inversion Impression: Normal EKG RADIOLOGY: Reviewed with the radiologist REEVALUATION: 1215: Diagnostic tests were appreciated and discussed with the patient. Patient was reevaluated he was ambulatory without difficulty with no neurologic symptoms. He had no cardiac symptoms. He appeared well and was able to be discharged home. MEDICAL DECISION MAKIN-year-old male with a history of liver failure presents to the emergency department with nonspecific dizziness after a paracentesis. His diagnostic work-up today shows no evidence of anemia, severe electrolytic disturbance, subdural hematoma or other significant cardiac or neurologic concerns. Overall, patient is neurologically normal, ambulatory and steady on his feet and seems appropriate for discharge. Departure Diagnosis: Primary Impression: Dizziness Condition: Stable Patient Instructions: Dizziness, Unk Cause Additional Instructions: See your doctor for follow-up as discussed. Take a copy of your test results, i f appropriate, to this follow-up visit. See your doctor or return here if your symptoms do not improve as expected. At any time, please return to the emergency department for any change or worsening in her symptoms. KY MOISE Jul 13, 2018 12:19
[2018-07-13 12:40] VITALS: BP 114/78; PULSE 72; RESP 14
== END 2018-07-13 12:42 | disposition home or self-care (01) ==
LOC: E/R 08:47
DX: R42 Dizziness and giddiness (principal); Z21 Asymptomatic human immunodeficiency virus [HIV] infection status
CPT/HCPCS: 36415; 70450; 71045; 80048; 84484; 85025; 85610; 85730; 93005; Z7502

== ENCOUNTER 2018-07-16 11:56 | Emergency (ER) | payer MEDICAID ==
[~2018-07-16] VITALS: Ht 165.1 cm; Wt 67.2 kg
[2018-07-16 12:01] VITALS: Ht 165.1 cm; Wt 67.2 kg
--- NOTE | 2018-07-16 13:41 | ERD ---
ER Documentation Chief Complaint Chief Complaint AP with ascites X 5 days HPI Patient is a 58-year-old male with a history of ascites who presents for paracentesis. The patient gets frequent paracentesis and is well-known to myself and to our staff. His last paracentesis was 5 days ago. He denies fevers. Upon review of old medical records patient has multiple visits to the ER for the same. He said that he just requires a paracentesis. ROS All systems reviewed and are negative except as per history of present illness. Medications Home Meds Reported Medications Spironolactone* (Aldactone*) 25 Mg Tablet, 25 MG PO BID, #60 TAB 06/29/18 Furosemide* (Furosemide*) 20 Mg Tablet, 20 MG PO DAILY, #60 TAB 06/29/18 Discontinued Scripts Cephalexin* (Keflex*) 500 Mg Capsule, 500 MG PO QID for 5 Days, CAP Prov:KY MOISE 06/29/18 Allergies Allergies: Coded Allergies: No Known Allergy (Unverified , 07/16/18) PMhx/Soc History of Surgery: No Anesthesia Reaction: No Hx Neurological Disorder: No Hx Respiratory Disorders: No Hx Cardiac Disorders: No Hx Psychiatric Problems: No Hx Miscellaneous Medical Probl: Yes (HIV +, CIRRHOSIS, ASCITES) Hx Alcohol Use: Yes (FORMER ALCOHOL USE) Hx Substance Use: No Hx Tobacco Use: No Smoking Status: Never smoker FmHx Family History: No diabetes Physical Exam Vitals Vital Signs Date Temp Pulse Resp B/P (MAP) Pulse Ox O2 O2 Flow FiO2 Time Delivery Rate 07/16/18 98.5 110 18 138/89 99 12:01 (105) Physical Exam Const: No acute distress Head: Atraumatic Eyes: Normal Conjunctiva ENT: Normal External Ears, Nose and Mouth. Neck: Full range of motion. No meningismus. Resp: Clear to auscultation bilaterally Cardio: Regular rate and rhythm, no murmurs Abd: Abdominal distention with positive fluid wave Skin: No petechiae or rashes Back: No midline or flank tenderness Ext: No cyanosis, or edema Neur: Awake and alert Psych: Normal Mood and Affect Procedures/MDM Ultrasound-guided paracentesis performed by radiology. Patient is a 58-year-old male presents with ascites. The patient had paracentesis performed by radiology. The patient will be discharged home. I doubt spontaneous bacterial peritonitis. Departure Diagnosis: Primary Impression: Ascites Ascites type: other type Qualified Codes: R18.8 - Other ascites Additional Impression: Abdominal pain Abdominal location: unspecified location Qualified Codes: R10.9 - Unspecified abdominal pain Condition: Fair Patient Instructions: Ascites Referrals[facility] Usted se pizarro hecho un examen mdico de control que le indica que no est en sunita condicin que requiera tratamiento urgente en el Departamento de Emergencia. Un estudio ms profundo y el tratamiento de galloway condicin pueden esperar sin ningn riesgo hasta que usted sea atendida/o en el consultorio de galloway mdico o sunita clnica. Es responsabilidad suya arreglar sunita safia para el seguimiento del gabi. MANEJO DE CONDICIONES NO URGENTES EN EL FUTURO 1) Si usted tiene un mdico de atencin primaria: Usted debera llamar a galloway mdico de atencin primaria antes de venir al departamento de emergencia. Despus de las horas de consultorio, galloway doctor o galloway asociado/a est disponible por telfono. El mdico o enfermero de bere en el servicio telefnico puede asesorarle por nadeem medio para atender el problema, o gabi contrario se puede programar sunita safia. 2) Si usted no tiene un mdico de atencin primaria: Llame al mdico o clnica de referencia que aparece abajo ry las horas de consultorio para hacer sunita safia para que le vean. CLINICAS: [facility] [phone] [facility] [phone] [facility] [phone] [facility]. [facility] [phone] [place] [phone] [facility] [phone] [address] Additional Instructions: Llame al doctor nombrado abajo (Referral Sources) MAANA y landon sunita SAFIA PARA DENTRO DE SUNITA SEMANA. Dgale a la secretaria que nosotros le instruimos hacer esta safia.Avise o llame si galloway condicin se empeora antes de la safia. ONEAL REYES MD Jul 16, 2018 13:41
[2018-07-16 14:46] VITALS: BP 119/68; PULSE 87; RESP 18
[2018-07-16] MEDS ORDERED: LIDOCAINE 1% (MPF) 5 ML VIAL ONE (20:52)
== END 2018-07-16 14:48 | disposition home or self-care (01) ==
LOC: E/R 11:56
DX: R18.8 Other ascites (principal); R10.9 Unspecified abdominal pain; Z21 Asymptomatic human immunodeficiency virus [HIV] infection status
CPT/HCPCS: Z7502; Z7610

== ENCOUNTER 2018-07-22 08:48 | Emergency (ER) | payer MEDICAID ==
[~2018-07-22] VITALS: Ht 167.6 cm; Wt 66.9 kg
[2018-07-22 08:50] VITALS: Ht 167.6 cm; Wt 66.9 kg
--- NOTE | 2018-07-22 09:22 | ERD ---
ER Documentation Chief Complaint Chief Complaint pt is bib self with abd swelling, needs paracentesis, last done 5 days ago HPI 58-year-old male with history of liver cirrhosis and recurrent ascites well- known to this ED presents complaining of increasing abdominal distention and requesting a paracentesis. His most recent paracentesis was 07/16/2018. Denies abdominal pain nausea, vomiting, diarrhea, constipation, hematemesis, hematochezia or melena. No shortness of breath, cough or hemoptysis. Denies headache or confusion. No fevers or chills. ROS All systems reviewed and are negative except as per history of present illness. Medications Home Meds Reported Medications Spironolactone* (Aldactone*) 25 Mg Tablet, 25 MG PO BID, #60 TAB 06/29/18 Furosemide* (Furosemide*) 20 Mg Tablet, 20 MG PO DAILY, #60 TAB 06/29/18 Allergies Allergies: Coded Allergies: No Known Allergy (Unverified , 07/22/18) PMhx/Soc Reviewed in chart. As per HPI. History of Surgery: No Anesthesia Reaction: No Hx Neurological Disorder: No Hx Respiratory Disorders: No Hx Cardiac Disorders: No Hx Psychiatric Problems: No Hx Miscellaneous Medical Probl: Yes (HIV +, CIRRHOSIS, ASCITES) Hx Alcohol Use: Yes (FORMER ALCOHOL USE) Hx Substance Use: No Hx Tobacco Use: No FmHx No family history relevant to presenting complaint Physical Exam Vitals Vital Signs Date Temp Pulse Resp B/P (MAP) Pulse Ox O2 O2 Flow FiO2 Time Delivery Rate 07/22/18 67 18 122/75 96 Room Air 13:00 (91) 07/22/18 98.0 66 18 130/79 95 Room Air 12:20 (96) 07/22/18 98.3 86 16 105/71 98 08:50 (82) Physical Exam Const: Alert, mild distress. Head: Atraumatic Eyes: Normal Conjunctiva ENT: Normal External Ears, Nose and Mouth. Neck: Full range of motion. No meningismus. Resp: Breath sounds diminished at the bases but otherwise clear to auscultation bilaterally. No rales rhonchi or wheezes. Cardio: Regular rate and rhythm, no murmurs Abd: Soft, distended, positive fluid wave, nontender. No rebound or guarding. Normal bowel sounds Skin: No petechiae or rashes Back: No midline or flank tenderness Ext: No cyanosis, or edema Neur: Awake and alert. Oriented x4. Cranial nerves are grossly intact. No focal deficit observed. Psych: Normal Mood and Affect. Not anxious or depressed. Results 24 hrs Current Medications Medications Dose Sig/Keya Start Time Status Last (Trade) Ordered Route PRN Stop Time Admin Dose Reason Admin Lidocaine 5 ml STK-MED 07/22/18 DC (Xylocaine ONCE .ROUTE 12:56 07/22/18 1% (Mpf)) 12:57 Procedures/MDM DOCUMENTS REVIEWED: ED nurse, prior ED, prior records ED COURSE: Ultrasound-guided paracentesis by IR. REEXAMINATION/REEVALUATION: Time: 13:10. Doing well. Symptomatically improved. No hypotension. MEDICAL DECISION MAKIN-year-old male with history of liver cirrhosis and recurrent ascites well-known to this ED presents complaining of increasing abdominal distention and requesting a paracentesis. Large volume ultrasound- guided paracentesis performed by interventional radiology and 5 liters removed. Patient feels significantly better. No hypotension. No fever, leukocytosis, abdominal tenderness or other signs of an acute intra-abdominal process including spontaneous bacterial peritonitis. Stable for discharge with precautionary instructions and outpatient follow-up as counseled. Counseled patient regarding need for medication compliance and outpatient followup. Understands to return to ED for bleeding, pain, discharge from puncture site, if symptoms recur, worsen or any other concerns. Departure Diagnosis: Primary Impression: Ascites Ascites type: due to alcoholic cirrhosis Qualified Codes: K70.31 - Alcoholic cirrhosis of liver with ascites Additional Impressions: Liver cirrhosis Hepatic cirrhosis type: alcoholic cirrhosis Ascites presence: with ascites Qualified Codes: K70.31 - Alcoholic cirrhosis of liver with ascites Status post abdominal paracentesis Condition: Stable (Improved) TWIN PEREZ MD July 22, 2018 09:22
[2018-07-22 12:20] VITALS: BP 130/79; PULSE 66; RESP 18
[2018-07-22] MEDS ORDERED: LIDOCAINE 1% (MPF) 5 ML VIAL ONE (12:56)
[2018-07-22 13:00] VITALS: BP 122/75; PULSE 67; RESP 18
== END 2018-07-22 16:49 | disposition left against medical advice (07) ==
LOC: E/R 08:48
DX: K70.31 Alcoholic cirrhosis of liver with ascites (principal)
CPT/HCPCS: Z7502; Z7610

== ENCOUNTER 2018-07-25 08:43 | Emergency (ER) | payer MEDICAID ==
[~2018-07-25] VITALS: Ht 170.2 cm; Wt 67.0 kg
[2018-07-25 09:00] VITALS: BP 131/82; PULSE 87; RESP 16; Ht 170.2 cm; Wt 67.0 kg
[2018-07-25] MEDS ORDERED: LIDOCAINE 1% (MPF) 5 ML VIAL ONE (13:51)
--- NOTE | 2018-07-25 14:13 | ERD ---
ER Documentation Chief Complaint Chief Complaint in ed for paracentesis HPI This is a 58-year-old male with a history of ascites. The patient is presented to the emergency department abdominal distention. 5 days ago the patient had a therapeutic paracentesis. He said no fevers or shaking or chills. He denies any hemoptysis. No hematemesis. ROS All systems reviewed and are negative except as per history of present illness. Medications Home Meds Reported Medications Spironolactone* (Aldactone*) 25 Mg Tablet, 25 MG PO BID, #60 TAB 06/29/18 Furosemide* (Furosemide*) 20 Mg Tablet, 20 MG PO DAILY, #60 TAB 06/29/18 Allergies Allergies: Coded Allergies: No Known Allergy (Unverified , 07/22/18) PMhx/Soc History of Surgery: No Anesthesia Reaction: No Hx Neurological Disorder: No Hx Respiratory Disorders: No Hx Cardiac Disorders: No Hx Psychiatric Problems: No Hx Miscellaneous Medical Probl: Yes (HIV +, CIRRHOSIS, ASCITES) Hx Alcohol Use: Yes (FORMER ALCOHOL USE) Hx Substance Use: No Hx Tobacco Use: No Smoking Status: Never smoker Physical Exam Vitals Vital Signs Date Temp Pulse Resp B/P (MAP) Pulse Ox O2 O2 Flow FiO2 Time Delivery Rate 07/25/18 95.9 87 16 131/82 99 09:00 (98) Physical Exam Constitutional:Well-developed. Well-nourished. Respiratory: Not using accessory muscles of respiration.Lungs were clear to auscultation bilaterally. No rhonchi. No rales. No wheezing. No scleral icterus. Cardiovascular: Regular rate regular rhythm.No murmurs. No rubs were appreciated.S1, S2 normal. Distal pulses are palpable 2+ bilaterally. GI: Abdomen was distended with tense ascites. Nontender. No pulsatile abdominal masses or bruits. No rebound. No guarding. Bowel sounds were present and normal. Muscle skeletal: Full range of motion of both the upper and lower extremities bilaterally.Normal muscle tone.No assymetrical calf tenderness or swelling. Skin: Jaundice. No petechia, no purpura. No lesions on the palms or the soles of the feet. No maculopapular rash. NEURO: Patient was alert, awake, orientated x3.No facial droop. Gait observed and normal with no ataxia.Speech had regular rate and rhythm. No focal neurological deficits. Results 24 hrs Current Medications Medications Dose Sig/Keya Start Time Status Last (Trade) Ordered Route PRN Stop Time Admin Dose Reason Admin Lidocaine 5 ml STK-MED 07/25/18 DC (Xylocaine ONCE .ROUTE 13:51 07/25/18 1% (Mpf)) 13:52 Procedures/MDM Is a 50-year-old male that presented to the emergency department for therapeutic paracentesis with no evidence of spontaneous bacterial peritonitis. Under ultrasound guidance the patient had 5 L of fluid removed by the radiologist. The patient tolerated the procedure well. The patient was discharged home in fair condition. They were instructed to return to the emergency department at any time if there was any worsening of their condition. The patient stated they would follow up with their PCP in the next 24-48 hours to initiate a suitable medication regimen under the care of their PCP as well as to allow their PCP to monitor any drug reactions. The patient was discharged home with prescriptions after they gave informed consent to the new medication. They were also fully informed by myself on the adverse effects and adverse drug interactions in order to provide adequate safeguards to prevent possible adverse reactions to medications. Departure Diagnosis: Primary Impression: Ascites Ascites type: other type Qualified Codes: R18.8 - Other ascites Condition: Fair Patient Instructions: Ascites ROSALIA BLEVINS MD July 25, 2018 14:12
== END 2018-07-25 14:22 | disposition home or self-care (01) ==
LOC: E/R 08:43
DX: R18.8 Other ascites (principal)
CPT/HCPCS: Z7502; Z7610

== ENCOUNTER 2018-08-06 09:27 | Emergency (ER) | payer MEDICAID ==
[~2018-08-06] VITALS: Wt 68.5 kg
[2018-08-06 09:29] VITALS: Wt 68.5 kg
[2018-08-06] MEDS ORDERED: LIDOCAINE 1% (MPF) 5 ML VIAL ONE (12:20)
--- NOTE | 2018-08-06 12:36 | ERD ---
ER Documentation Chief Complaint Chief Complaint here for paracenthesis, abd distention. no signs of distress. HPI This is a 58-year-old male with a history of a cirrhosis and ascites which is required multiple drainages who presents to the emergency room for evaluation of mild abdominal distention. The patient denies any fevers or chills and states that he last had his ascites drained approximately 12 days ago. Patient denies any chest pain shortness of breath nausea or vomiting. ROS All systems reviewed and are negative except as per history of present illness. Medications Home Meds Reported Medications Spironolactone* (Aldactone*) 25 Mg Tablet, 25 MG PO BID, #60 TAB 06/29/18 Furosemide* (Furosemide*) 20 Mg Tablet, 20 MG PO DAILY, #60 TAB 06/29/18 Allergies Allergies: Coded Allergies: No Known Allergy (Unverified , 07/22/18) PMhx/Soc History of Surgery: No Anesthesia Reaction: No Hx Neurological Disorder: No Hx Respiratory Disorders: No Hx Cardiac Disorders: No Hx Psychiatric Problems: No Hx Miscellaneous Medical Probl: Yes (HIV +, CIRRHOSIS, ASCITES) Hx Alcohol Use: Yes (FORMER ALCOHOL USE) Hx Substance Use: No Hx Tobacco Use: No Smoking Status: Never smoker Physical Exam Vitals Vital Signs Date Temp Pulse Resp B/P (MAP) Pulse Ox O2 O2 Flow FiO2 Time Delivery Rate 08/06/18 98.0 90 18 105/75 98 09:29 (85) Physical Exam Const: No acute distress Head: Atraumatic Eyes: Normal Conjunctiva ENT: Normal External Ears, Nose and Mouth. Neck: Full range of motion. No meningismus. Resp: Clear to auscultation bilaterally Cardio: Regular rate and rhythm, no murmurs Abd: Abdominal distention with a positive fluid wave normal bowel sounds Skin: No petechiae or rashes Back: No midline or flank tenderness Ext: No cyanosis, or edema Neur: Awake and alert Psych: Normal Mood and Affect Result Diagram: 08/06/18 1025 Results 24 hrs Laboratory Tests Test 08/06/18 10:25 White Blood Count 4.2 10^3/ul Red Blood Count 4.17 10^6/ul Hemoglobin 11.2 g/dl Hematocrit 34.1 % Mean Corpuscular Volume 81.8 fl Mean Corpuscular Hemoglobin 26.9 pg Mean Corpuscular Hemoglobin Concent 32.8 g/dl Red Cell Distribution Width 18.0 % Platelet Count 152 10^3/UL Mean Platelet Volume 10.0 fl Immature Granulocytes % 0.200 % Neutrophils % 58.7 % Lymphocytes % 26.3 % Monocytes % 12.4 % Eosinophils % 1.7 % Basophils % 0.7 % Nucleated Red Blood Cells % 0.0 /100WBC Immature Granulocytes # 0.010 10^3/ul Neutrophils # 2.5 10^3/ul Lymphocytes # 1.1 10^3/ul Monocytes # 0.5 10^3/ul Eosinophils # 0.1 10^3/ul Basophils # 0.0 10^3/ul Nucleated Red Blood Cells # 0.0 10^3/ul Prothrombin Time 14.9 Sec Prothrombin Time Ratio 1.2 INR International Normalized Ratio 1.16 Activated Partial Thromboplast Time 31.5 Sec Current Medications Medications Dose Sig/Keya Start Time Status Last (Trade) Ordered Route PRN Stop Time Admin Dose Reason Admin Lidocaine 5 ml STK-MED 08/06/18 DC (Xylocaine ONCE .ROUTE 12:20 1% (Mpf)) 08/06/18 12:21 Procedures/MDM This 15-year-old male presents to the ER for evaluation of paracentesis. Patient does have cirrhosis with ascites and positive fluid shift on my exam. Patient was sent to ultrasound and had removal of 5 L of fluid. The patient is doing better at this time and states that he is feeling less pressure in the abdomen. The patient is afebrile, and received a therapeutic paracentesis. Lab work does not demonstrate leukocytosis, I doubt SBP. The patient will be discharged at this time. Departure Diagnosis: Primary Impression: Abdominal pain Additional Impression: Ascites Condition: Stable GRANT BRUCE DO August 06, 2018 12:36
[2018-08-06 12:43] VITALS: BP 117/75; PULSE 64; RESP 20
== END 2018-08-06 12:52 | disposition home or self-care (01) ==
LOC: E/R 09:27
DX: R18.8 Other ascites (principal)
CPT/HCPCS: 85025; 85610; 85730; Z7502; Z7610

== ENCOUNTER 2018-08-10 08:55 | Emergency (ER) | payer MEDICAID ==
[~2018-08-10] VITALS: Ht 167.6 cm; Wt 65.9 kg
[2018-08-10 08:58] VITALS: Ht 167.6 cm; Wt 65.9 kg
--- NOTE | 2018-08-10 09:26 | ERD ---
ER Documentation Chief Complaint Chief Complaint needs paracentesis HPI 58-year-old man complaining of umbilical herniation and requesting treatment for umbilical hernia. Patient has had a soft reducible umbilical hernia for many years and was told by [facility] that he cannot undergo surgery because of chronic low platelets and chronic cirrhosis. Patient is asking about therapies he can do at home to reduce his umbilical hernia. Patient did undergo paracentesis 4 days ago. He has a remote history of alcoholism (stop drinking alcohol 6 months ago), he denies fevers or chills, no blood per rectum or melena, no vomiting or diarrhea, no complaints of chest pain or shortness of breath ROS All systems reviewed and are negative except as per history of present illness. Medications Home Meds Reported Medications Spironolactone* (Aldactone*) 25 Mg Tablet, 25 MG PO BID, #60 TAB 06/29/18 Furosemide* (Furosemide*) 20 Mg Tablet, 20 MG PO DAILY, #60 TAB 06/29/18 Allergies Allergies: Coded Allergies: No Known Allergy (Unverified , 08/10/18) PMhx/Soc Remote alcoholism, alcoholic cirrhosis with recurrent ascites History of Surgery: No Anesthesia Reaction: No Hx Neurological Disorder: No Hx Respiratory Disorders: No Hx Cardiac Disorders: No Hx Psychiatric Problems: No Hx Miscellaneous Medical Probl: Yes (HIV +, CIRRHOSIS, ASCITES) Hx Alcohol Use: Yes (FORMER ALCOHOL USE) Hx Substance Use: No Hx Tobacco Use: No Smoking Status: Never smoker FmHx Family History: No diabetes Physical Exam Vitals Vital Signs Date Temp Pulse Resp B/P (MAP) Pulse Ox O2 O2 Flow FiO2 Time Delivery Rate 08/10/18 97.8 102 20 118/79 99 08:58 (92) Physical Exam Const: No acute distress, afebrile HEENT: [place] conjunctival, moist mucous membranes, no jaundice or icte adilene Resp: Clear to auscultation bilaterally Cardio: Regular rate and rhythm, no murmurs Abd: Soft minimally protuberant abdomen without obvious distention, no rigidity or rebound, no masses, soft easily reducible 2 cm umbilical hernia Procedures/MDM Reassurance was provided to the patient and I provided multiple oral verbal recommendations to help with hernia management, we also gave him an abdominal binder here in the ER to use at home. Differential diagnoses considered, included but not limited to acute coronary syndrome, pulmonary embolism, aortic dissection, abdominal aortic aneurysm, sepsis, stroke, meningitis, encephalitis, pneumonia, appendicitis, cholecystitis, bowel obstruction, pyelonephritis, nephrolithiasis, cystitis, as well as metabolic, hematologic, and electrolyte abnormalities. As well as abscess, cellulitis, fractures, and dislocations. Patient feels much better at this time, and vital signs are normal, symptoms have improved. I did give strict instructions to return to the ED if symptoms continue or worsen, patient will otherwise follow-up with primary care physician. Patient understood instructions and agreed to plan. Disclaimer: Inadvertent spelling and grammatical errors are likely due to EHR/dictation software use and do not reflect on the overall quality of patient care. Also, please note that the electronic time recorded on this note does not necessarily reflect the actual time of the patient encounter. Departure Diagnosis: Primary Impression: Umbilical hernia Additional Impression: Ascites Condition: ERIK Barclay MD August 10, 2018 09:26
[2018-08-10 09:47] VITALS: BP 118/75; PULSE 75; RESP 18
== END 2018-08-10 10:22 | disposition home or self-care (01) ==
LOC: E/R 08:55
DX: K42.9 Umbilical hernia without obstruction or gangrene (principal); R18.8 Other ascites; R40.2142 Coma scale, eyes open, spontaneous, at arrival to emergency department; R40.2362 Coma scale, best motor response, obeys commands, at arrival to emergency department; R40.2252 Coma scale, best verbal response, oriented, at arrival to emergency department; Z21 Asymptomatic human immunodeficiency virus [HIV] infection status
CPT/HCPCS: 99282

== ENCOUNTER 2018-08-11 10:54 | Emergency (ER) | payer MEDICAID ==
[~2018-08-11] VITALS: Wt 66.5 kg
[2018-08-11 12:00] VITALS: BP 111/72; PULSE 70; RESP 20
[2018-08-11 12:35] VITALS: BP 105/68; PULSE 72; RESP 18
[2018-08-11] MEDS ORDERED: LIDOCAINE 1% (MPF) 5 ML VIAL ONE ×2 (12:38)
--- NOTE | 2018-08-11 12:51 | ERD ---
ER Documentation Chief Complaint Chief Complaint HERE FOR PARACENTHESIS, HERE YESTERDAY HPI This is a 58-year-old male who is well-known here he is here for paracentesis. The patient is been seen here multiple times in the past he was here yesterday but was denied paracentesis. The patient says he has no abdominal pain nausea vomiting diarrhea has just abdominal swelling consistent with ascites and wants to have it drained. ROS All systems reviewed and are negative except as per history of present illness. Medications Home Meds Reported Medications Spironolactone* (Aldactone*) 25 Mg Tablet, 25 MG PO BID, #60 TAB 06/29/18 Furosemide* (Furosemide*) 20 Mg Tablet, 20 MG PO DAILY, #60 TAB 06/29/18 Allergies Allergies: Coded Allergies: No Known Allergy (Unverified , 08/10/18) PMhx/Soc History of Surgery: No Anesthesia Reaction: No Hx Neurological Disorder: No Hx Respiratory Disorders: No Hx Cardiac Disorders: No Hx Psychiatric Problems: No Hx Miscellaneous Medical Probl: Yes (HIV +, CIRRHOSIS, ASCITES) Hx Alcohol Use: Yes (FORMER ALCOHOL USE) Hx Substance Use: No Hx Tobacco Use: No Smoking Status: Never smoker FmHx Family History: No coronary disease Physical Exam Vitals Vital Signs Date Temp Pulse Resp B/P (MAP) Pulse Ox O2 O2 Flow FiO2 Time Delivery Rate 08/11/18 76 18 97/60 (72) 99 Room Air 12:35 08/11/18 98.0 79 18 109/79 99 10:58 (89) Physical Exam Const: Well-developed, well-nourished Head: Atraumatic, normocephalic Eyes: Normal Conjunctiva, PERRLA, EOMI, normal sclera, no nystagmus ENT: Normal External Ears, Nose and Mouth, moist mucus membranes. Neck: Full range of motion. No meningismus, no lymphadenopathy. Resp: Clear to auscultation bilaterally, no wheezing, rhonchi, rales Cardio: Regular rate and rhythm, no murmurs, S1 S2 present Abd: Soft, non tender x 4, ascites. Normal bowel sounds, no guarding or rebound, no pulsitile abdominal masses or bruits Skin: No petechiae or rashes, no ecchymosis , no maculopapular rash Back: No midline or flank tenderness Ext: No cyanosis, or edema, FROM x 4, normal inspection, neurovascularly intact x 4 Neur: Awake and alert, STR 5/5 x 4, sensation intact x 4, no focal findings, cerebellum intact Psych: Normal Mood and Affect Results 24 hrs Current Medications Medications Dose Sig/Keya Start Time Status Last (Trade) Ordered Route PRN Stop Time Admin Dose Reason Admin Lidocaine 5 ml STK-MED 08/11/18 DC 08/11/18 (Xylocaine ONCE .ROUTE 12:38 12:43 1% (Mpf)) 08/11/18 12:39 Lidocaine 5 ml STK-MED 08/11/18 DC (Xylocaine ONCE .ROUTE 12:38 1% (Mpf)) 08/11/18 12:39 Procedures/MDM Patient had a therapeutic paracentesis by the interventional radiologist. Patient feels much better at this time, and vital signs are normal, symptoms have improved. I did give strict instructions to return to the ED if symptoms continue or worsen, patient will otherwise follow-up with primary care physician. Patient understood instructions and agreed to plan. Disclaimer: Inadvertent spelling and grammatical errors are likely due to EHR/dictation software use and do not reflect on the overall quality of patient care. Also, please note that the electronic time recorded on this note does not necessarily reflect the actual time of the patient encounter. Departure Diagnosis: Primary Impression: Ascites Ascites type: other type Qualified Codes: R18.8 - Other ascites Condition: Stable Patient Instructions: Ascites SHWETA SHERMAN DO August 11, 2018 12:51
== END 2018-08-11 12:53 | disposition home or self-care (01) ==
LOC: E/R 10:54
DX: R18.8 Other ascites (principal)
CPT/HCPCS: Z7502; Z7610

== ENCOUNTER 2018-08-17 09:09 | Emergency (ER) | payer MEDICAID ==
[~2018-08-17] VITALS: Ht 162.6 cm; Wt 66.9 kg
[2018-08-17 09:13] VITALS: Ht 162.6 cm; Wt 66.9 kg
--- NOTE | 2018-08-17 12:49 | ERD ---
ER Documentation Chief Complaint Chief Complaint pt here for paracentesis HPI Patient is a 58-year-old male with cirrhosis who presents for paracentesis. The patient has abdominal pain and distention. He has no fevers. Upon review of old medical records the patient has multiple visits for similar and he is well-k nown to myself and to our staff. Review of the emergency department information exchange system shows visits to 4 separate emergency departments for a total of 55 visits over the past 1 year. ROS All systems reviewed and are negative except as per history of present illness. Medications Home Meds Discontinued Reported Medications Spironolactone* (Aldactone*) 25 Mg Tablet, 25 MG PO BID, #60 TAB 06/29/18 Furosemide* (Furosemide*) 20 Mg Tablet, 20 MG PO DAILY, #60 TAB 06/29/18 Allergies Allergies: Coded Allergies: No Known Allergy (Unverified , 08/17/18) PMhx/Soc History of Surgery: No Anesthesia Reaction: No Hx Neurological Disorder: No Hx Respiratory Disorders: No Hx Cardiac Disorders: No Hx Psychiatric Problems: No Hx Miscellaneous Medical Probl: Yes (HIV +, CIRRHOSIS, ASCITES) Hx Alcohol Use: Yes (FORMER ALCOHOL USE) Hx Substance Use: No Hx Tobacco Use: No Smoking Status: Never smoker FmHx Family History: No diabetes Physical Exam Vitals Vital Signs Date Temp Pulse Resp B/P (MAP) Pulse Ox O2 O2 Flow FiO2 Time Delivery Rate 08/17/18 98.1 102 18 114/77 98 09:13 (89) Physical Exam Const: No acute distress Head: Atraumatic Eyes: Normal Conjunctiva ENT: Normal External Ears, Nose and Mouth. Neck: Full range of motion. No meningismus. Resp: Clear to auscultation bilaterally Cardio: Regular rate and rhythm, no murmurs Abd: Abdominal distention with positive fluid wave Skin: No petechiae or rashes Back: No midline or flank tenderness Ext: No cyanosis, or edema Neur: Awake and alert Psych: Normal Mood and Affect Procedures/MDM Patient is a 58-year-old male presents for ascites. The patient has no signs of spontaneous bacterial peritonitis. The patient will get paracentesis done by interventional radiology. The patient will then be discharged. He does not require repeat laboratory studies at this time as he just had labs done a few days ago. Departure Diagnosis: Primary Impression: Ascites Ascites type: other type Qualified Codes: R18.8 - Other ascites Additional Impression: Abdominal pain Abdominal location: generalized Qualified Codes: R10.84 - Generalized abdominal pain Condition: Fair Patient Instructions: Ascites [facility] Usted se pizarro hecho un examen mdico de control que le indica que no est en sunita condicin que requiera tratamiento urgente en el Departamento de Emergencia. Un estudio ms profundo y el tratamiento de galloway condicin pueden esperar sin ningn riesgo hasta que usted sea atendida/o en el consultorio de galloway mdico o sunita clnica. Es responsabilidad suya arreglar sunita safia para el seguimiento del gabi. MANEJO DE CONDICIONES NO URGENTES EN EL FUTURO 1) Si usted tiene un mdico de atencin primaria: Usted debera llamar a galloway mdico de atencin primaria antes de venir al departamento de emergencia. Despus de las horas de consultorio, galloway doctor o galloway asociado/a est disponible por telfono. El mdico o enfermero de bere en el servicio telefnico puede asesorarle por nadeem medio para atender el problema, o gabi contrario se puede programar sunita safia. 2) Si usted no tiene un mdico de atencin primaria: Llame al mdico o clnica de referencia que aparece abajo ry las horas de consultorio para hacer sunita safia para que le vean. CLINICAS: [facility] [phone] [facility] [phone] [facility] [phone] [facility] [place] [phone] [facility]. [place] [phone] [address] [facility] [phone] [facility] JENA PETTIT Additional Instructions: Llame al doctor nombrado abajo (Referral Sources) MAANA y landon sunita SAFIA PARA DENTRO DE SUNITA SEMANA. Dgale a la secretaria que nosotros le instruimos hacer esta safia.Avise o llame si galloway condicin se empeora antes de la safia. ONEAL REYES MD August 17, 2018 12:49
[2018-08-17] MEDS ORDERED: LIDOCAINE 1% (MPF) 5 ML VIAL ONE (15:09)
[2018-08-17 15:30] VITALS: BP 113/75; PULSE 79; RESP 18
== END 2018-08-17 15:35 | disposition home or self-care (01) ==
LOC: E/R 09:09
DX: R18.8 Other ascites (principal); R10.84 Generalized abdominal pain
CPT/HCPCS: Z7502; Z7610

== ENCOUNTER 2018-08-22 09:26 | Emergency (ER) | payer MEDICAID ==
[~2018-08-22] VITALS: Wt 75.0 kg
[2018-08-22 09:29] VITALS: BP 113/70; PULSE 99; RESP 18
[2018-08-22] MEDS ORDERED: LIDOCAINE 1% (MPF) 5 ML VIAL ONE (11:21)
--- NOTE | 2018-08-22 12:48 | ERD ---
ER Documentation Chief Complaint Chief Complaint HERE FOR PARACENTHESIS. LAST PARA ASYMPTOMATIC ABOUT 3 DAYS AGO HPI Patient is a 58-year-old male with cirrhosis who presents for paracentesis. The patient has no fevers. He has abdominal distention. Upon review of old medical records he has multiple visits for the same and he is well-known to myself and to our staff. He comes about every 3 days for a paracentesis. ROS All systems reviewed and are negative except as per history of present illness. Medications Home Meds Discontinued Reported Medications Spironolactone* (Aldactone*) 25 Mg Tablet, 25 MG PO BID, #60 TAB 06/29/18 Furosemide* (Furosemide*) 20 Mg Tablet, 20 MG PO DAILY, #60 TAB 06/29/18 Allergies Allergies: Coded Allergies: No Known Allergy (Unverified , 08/17/18) PMhx/Soc Medical and Surgical Hx: pt denies Surgical Hx History of Surgery: No Anesthesia Reaction: No Hx Neurological Disorder: No Hx Respiratory Disorders: No Hx Cardiac Disorders: No Hx Psychiatric Problems: No Hx Miscellaneous Medical Probl: Yes (HIV +, CIRRHOSIS, ASCITES) Hx Alcohol Use: Yes (FORMER ALCOHOL USE) Hx Substance Use: No Hx Tobacco Use: No FmHx Family History: No diabetes Physical Exam Vitals Vital Signs Date Temp Pulse Resp B/P (MAP) Pulse Ox O2 O2 Flow FiO2 Time Delivery Rate 08/22/18 98.0 99 18 113/70 99 09:29 (84) Physical Exam Const: No acute distress Head: Atraumatic Eyes: Normal Conjunctiva ENT: Normal External Ears, Nose and Mouth. Neck: Full range of motion. No meningismus. Resp: Clear to auscultation bilaterally Cardio: Regular rate and rhythm, no murmurs Abd: Abdominal distention with positive fluid wave and umbilical hernia Skin: No petechiae or rashes Back: No midline or flank tenderness Ext: No cyanosis, or edema Neur: Awake and alert Psych: Normal Mood and Affect Results 24 hrs Current Medications Medications Dose Sig/Keya Start Time Status Last (Trade) Ordered Route PRN Stop Time Admin Dose Reason Admin Lidocaine 5 ml STK-MED 08/22/18 DC (Xylocaine ONCE .ROUTE 11:21 08/22/18 1% (Mpf)) 11:22 Procedures/MDM Ultrasound-guided paracentesis performed by radiology. Patient is a 58-year-old male who presents for paracentesis. I doubt spontaneous bacterial peritonitis. The patient will be discharged. He feels better after paracentesis. He can return for any worsening symptoms. Departure Diagnosis: Primary Impression: Ascites Ascites type: other type Qualified Codes: R18.8 - Other ascites Condition: Fair Patient Instructions: Ascites Referrals: [facility] Usted se pizarro hecho un examen mdico de control que le indica que no est en sunita condicin que requiera tratamiento urgente en el Departamento de Emergencia. Un estudio ms profundo y el tratamiento de galloway condicin pueden esperar sin ningn riesgo hasta que usted sea atendida/o en el consultorio de galloway mdico o sunita clnica. Es responsabilidad suya arreglar sunita saifa para el seguimiento del gabi. MANEJO DE CONDICIONES NO URGENTES EN EL FUTURO 1) Si usted tiene un mdico de atencin primaria: Usted debera llamar a galloway mdico de atencin primaria antes de venir al departamento de emergencia. Despus de las horas de consultorio, galloway doctor o galloway asociado/a est disponible por telfono. El mdico o enfermero de bere en el servicio telefnico puede asesorarle por nadeem medio para atender el problema, o gabi contrario se puede programar sunita safia. 2) Si usted no tiene un mdico de atencin primaria: Llame al mdico o clnica de referencia que aparece abajo ry las horas de consultorio para hacer sunita safia para que le vean. CLINICAS: [facility] [phone] [facility] [phone] [facility] [phone] [facility] [phone] [facility] 527 [phone] [facility] [phone] [address] Additional Instructions: Llame al doctor nombrado abajo (Referral Sources) MAANA y landon sunita SAFIA PARA DENTRO DE SUNITA SEMANA. Dgale a la secretaria que nosotros le instruimos hacer esta safia.Avise o llame si galloway condicin se empeora antes de la safia. ONEAL REYES MD Aug 22, 2018 12:48
== END 2018-08-22 12:42 | disposition home or self-care (01) ==
LOC: E/R 09:26
DX: R18.8 Other ascites (principal)
CPT/HCPCS: Z7502; Z7610

== ENCOUNTER 2018-08-30 08:47 | Emergency (ER) | payer MEDICAID ==
[~2018-08-30] VITALS: Ht 165.1 cm; Wt 66.5 kg
[2018-08-30 08:48] VITALS: Ht 165.1 cm; Wt 66.5 kg
[2018-08-30] MEDS ORDERED: LIDOCAINE 1% (MDV) 20 ML INJ ONE (10:51)
[2018-08-30] MEDS ORDERED: LIDOCAINE 1% (MPF) 5 ML VIAL ONE (11:20)
[2018-08-30 11:45] VITALS: BP 129/70; PULSE 73; RESP 16
--- NOTE | 2018-08-30 11:50 | ERD ---
ER Documentation Chief Complaint Chief Complaint here for paracenthesis HPI Patient is a 58-year-old male with cirrhosis and ascites who presents for paracentesis. He has no fevers. He gets frequent paracentesis. He is well- known to myself and to our staff for similar. He has multiple visits for paracentesis. ROS All systems reviewed and are negative except as per history of present illness. Medications Home Meds No Active Prescriptions or Reported Meds Allergies Allergies: Coded Allergies: No Known Allergy (Unverified , 08/17/18) PMhx/Soc History of Surgery: No Anesthesia Reaction: No Hx Neurological Disorder: No Hx Respiratory Disorders: No Hx Cardiac Disorders: No Hx Psychiatric Problems: No Hx Miscellaneous Medical Probl: Yes (HIV +, CIRRHOSIS, ASCITES) Hx Alcohol Use: Yes (FORMER ALCOHOL USE) Hx Substance Use: No Hx Tobacco Use: No Smoking Status: Never smoker FmHx Family History: No diabetes Physical Exam Vitals Vital Signs Date Temp Pulse Resp B/P (MAP) Pulse Ox O2 O2 Flow FiO2 Time Delivery Rate 08/30/18 98.6 73 16 129/70 99 Room Air 11:45 (89) 08/30/18 98.6 73 18 103/73 99 08:48 (83) Physical Exam Const: No acute distress Head: Atraumatic Eyes: Normal Conjunctiva ENT: Normal External Ears, Nose and Mouth. Neck: Full range of motion. No meningismus. Resp: Clear to auscultation bilaterally Cardio: Regular rate and rhythm, no murmurs Abd: Abdominal distention with ascites Skin: No petechiae or rashes Back: No midline or flank tenderness Ext: No cyanosis, or edema Neur: Awake and alert Psych: Normal Mood and Affect Results 24 hrs Current Medications Medications Dose Sig/Keya Start Time Status Last (Trade) Ordered Route PRN Stop Time Admin Dose Reason Admin Lidocaine 20 ml STK-MED 08/30/18 DC (Xylocaine ONCE .ROUTE 10:51 1% (Mdv) 20 08/30/18 10:52 ml) Lidocaine 5 ml STK-MED 08/30/18 DC 08/30/18 (Xylocaine ONCE .ROUTE 11:20 11:46 1% (Mpf)) 08/30/18 11:21 Procedures/MDM Patient is a 58-year-old male with cirrhosis who presents for paracentesis. He had an ultrasound-guided paracentesis performed. He has no fevers and I doubt spontaneous bacterial peritonitis. The patient will be discharged. He should follow-up with a primary doctor within 1 week. He can return for any worsening symptoms. Departure Diagnosis: Primary Impression: Ascites Ascites type: other type Qualified Codes: R18.8 - Other ascites Condition: Fair Patient Instructions: Ascites [facility]errals: [facility] Usted se pizarro hecho un examen mdico de control que le indica que no est en sunita c ondicin que requiera tratamiento urgente en el Departamento de Emergencia. Un estudio ms profundo y el tratamiento de galloway condicin pueden esperar sin ningn riesgo hasta que usted sea atendida/o en el consultorio de galloway mdico o sunita clnica. Es responsabilidad suya arreglar sunita safia para el seguimiento del gabi. MANEJO DE CONDICIONES NO URGENTES EN EL FUTURO 1) Si usted tiene un mdico de atencin primaria: Usted debera llamar a galloway mdico de atencin primaria antes de venir al departamento de emergencia. Despus de las horas de consultorio, galloway doctor o galloway asociado/a est disponible por telfono. El mdico o enfermero de bere en el servicio telefnico puede asesorarle por nadeem medio para atender el problema, o gabi contrario se puede programar sunita safia. 2) Si usted no tiene un mdico de atencin primaria: Llame al mdico o clnica de referencia que aparece abajo ry las horas de consultorio para hacer sunita safia para que le vean. CLINICAS: [facility] [phone] [facility] [phone] [facility] [phone] [place] [phone] [facility] [phone] [address] [facility] [phone] [address] Additional Instructions: Llame al doctor nombrado abajo (Referral Sources) MAANA y landon sunita SAFIA PARA DENTRO DE SUNTIA SEMANA. Dgale a la secretaria que nosotros le instruimos hacer esta safia.Avise o llame si galloway condicin se empeora antes de la safia. ONEAL REYES MD Aug 30, 2018 11:50
== END 2018-08-30 11:46 | disposition home or self-care (01) ==
LOC: E/R 08:47
DX: R18.8 Other ascites (principal)
CPT/HCPCS: C1729; Z7502; Z7610